=== PATIENT | female | born 1935 | race Caucasian/White ===

== ENCOUNTER 2017-05-04 11:46 | Observation (INO) | payer MEDICARE ==
[2017-05-04 13:04] LABS: #Basophils 0.1 thou/uL (0.0-0.2); #Eosinphils 0.5 thou/uL (0.0-0.7); #Lymphocytes 4.8 thou/uL (1.20-3.40); #Monocytes 0.9 thou/uL (0.11-0.59); #Neutrophils 4.9 thou/uL (1.40-6.50); %Basophils 1.3 % (0.0-1.0); %Eosinophils 4.5 % (0.0-10.0); %Lymphocytes 42.3 % (21.0-51.0); Hemoglobin 12.2 g/dL (12.0-16.0); Mean Corpuscular HGB CONC 33.3 g/dL (32.0-36.0); Mean Corpuscular Hemoglobin 30.6 pg (27.0-31.0); Mean Corpuscular Volume 92.2 fl (81.0-99.0); Platelet Count 376 thou/uL (130-400); RBC Distribution Width 13.4 % (11.5-14.5); Red Blood Cell (RBC) Count 3.97 mill/uL (4.20-5.40); White Blood Cell (WBC) Count 11.2 thou/uL (4.8-10.8)
--- NOTE | 2017-05-04 13:15 | RAD ---
RADIOGRAPH CHEST 1 VIEW: HISTORY: 81-year-old female with bradycardia. FINDINGS: There is hyperinflation of the lungs, consistent with COPD. There is cardiomegaly. There is no evid ence of air space density, pneumothorax, or pulmonary edema. The lateral costophrenic angles are sha rp. IMPRESSION: 1. No acute pulmonary findings. 2. Emphysema. 3. Cardiomegaly without congestive heart failure. 4. Evidence of coronary artery bypass graft surgery is evidence for coronary artery atherosclerotic disease. 5. Multiple old, healed, right posterolateral rib fracture deformities. nara [] POS: [facility]
[2017-05-04 13:22] LABS: ALT (SGPT) 18 U/L (8-55); AST (SGOT) 20 U/L (5-34); Albumin 3.9 g/dL (3.4-4.8); Alkaline Phosphatase 47 U/L (40-150); Anion Gap 14 mmol/L (10-20); BUN (Urea Nitrogen) 24 mg/dL (9.8-20.1); Bilirubin, Total 0.4 mg/dL (0.2-1.2); CK (CPK) 35 U/L (29-168); Calc. Creatinine Clearance 0 mL/min (70-130); Calcium 9.5 mg/dL (7.8-10.44); Carbon Dioxide 23 mmol/L (23-31); Chloride 94 mmol/L (98-107); Estimated GFR-MDRD 71; Globulin 2.7 g/dL (2.4-3.5); Glucose 95 mg/dL (83-110); Magnesium 1.9 mg/dL (1.6-2.6); Potassium 4.7 mmol/L (3.5-5.1); Protein, Total 6.6 g/dL (6.0-8.3); Sodium 126 mmol/L (136-145)
[2017-05-04 13:26] LABS: CKMB 0.8 ng/mL (0-6.6); Troponin I 0.014 ng/mL (< 0.028)
--- NOTE | 2017-05-04 16:04 | HP ---
PRIMARY CARE PHYSICIAN: SHELBY Macedo. REASON FOR ADMISSION: Hyponatremia, bradycardia. HISTORY OF PRESENT ILLNESS: An 81-year-old female with a history of coronary artery disease and requ ired CABG as well as history of post-CABG atrial fibrillation, on Multaq therapy. The patient is als o taking metoprolol 12.5 mg twice daily. The patient was told to come to the emergency room because primary care physician done some blood tests and they reported to family member that her potassium wa s high. Today, home health nurse checked her vitals and her pulse was running below 50 and her blood pressure was also slightly low and that is why her home health nurse called the patient's primary care physic geovani and based on blood test result and bradycardia, they advised her to go to the emergency room for evaluation. The patient's only complaint is generalized weakness, which is not new. The patient is planned for s urgery for left hip replacement in early May and that is why the patient is going to come for cla sses in our hospital and that is why primary care physician did routine blood test. Today, in our emergency room when blood test was repeated, her potassium is 4.7 but sodium is 126. T he patient denies taking any diuretics. The patient denies any constipation or diarrhea. She denies any fever, chills, nausea, vomiting, or flu-like illness. She denies any melena or hematochezia. S he denies any abdominal pain. She denies any chest pain, palpitation, orthopnea, PND or leg swelling . She denies any stroke-like symptoms. She denies any dizziness or syncopal episode. ALLERGIES: The patient is allergic to IODINE and IODINATED CONTRAST MEDIA. CURRENT HOME MEDICATIONS: Omeprazole 20 mg p.o. daily, Eliquis 5 mg p.o. daily, Multaq 400 mg twice daily, losartan 50 mg p.o. daily, metformin 500 mg p.o. b.i.d., methimazole 5 mg daily, metoprolol ta rtrate 12.5 mg twice daily, hydralazine 25 mg 3 times daily, pravastatin 40 mg p.o. at bedtime, Zolof t 50 mg p.o. daily, tramadol 50 mg q.6 hourly p.r.n., aspirin 81 mg p.o. daily. REVIEW OF SYSTEMS: The following complete review of systems was negative, unless otherwise mentioned in the HPI or below: CONSTITUTIONAL: Weight loss or gain, ability to conduct usual activities. SKIN: Rash, itching. EYES: Double vision, pain. ENT/MOUTH: Nose bleeding, neck stiffness, pain, tenderness. CARDIOVASCULAR: Palpitations, dyspnea on exertion, orthopnea. RESPIRATORY: Shortness of breath, wheezing, cough, hemoptysis, fever or night sweats. GASTROINTESTINAL: Poor appetite, abdominal pain, heartburn, nausea, vomiting, constipation, or diarrhea. GENITOURINARY: Urgency, frequency, dysuria, nocturia. MUSCULOSKELETAL: Pain, swelling. NEUROLOGIC/PSYCHIATRIC: Anxiety, depression. ALLERGY/IMMUNOLOGIC: Skin rash, bleeding tendency. Please see my HPI for pertinent positives and negatives. All other review of systems reviewed and ne gative except as mentioned in the HPI. PAST MEDICAL HISTORY: Hypertension; dyslipidemia; diabetes type 2; asthma; three-vessel coronary art sriram disease, required CABG; hyperthyroidism; gastroesophageal reflux disease. PAST PSYCHIATRIC HISTORY: Anxiety and depression. PAST SURGICAL HISTORY: Tonsillectomy, left hip replacement, hysterectomy, cataract surgery, bladder suspension, sinus surgery, CABG x3, cardiac catheterization. SOCIAL HISTORY: The patient lives at home with family. No history of tobacco, alcohol or illicit dr ug abuse. FAMILY HISTORY: Mother by age of 92 from old age. Father by age of 87 from old age. No s antonietta family history of coronary artery disease, stroke or cancer. EMERGENCY ROOM COURSE: The patient is receiving IV fluid. PHYSICAL EXAMINATION: VITAL SIGNS: On arrival, blood pressure 175/77, pulse variable from 48 to 51, respiratory rate 18, t emperature 98.0, saturation 97% on room air, weight 63 kilograms. GENERAL: The patient is currently alert, awake, no obvious acute distress. HEENT: Head: Normocephalic, atraumatic. Eyes: Pupils round, reactive to light. Extraocular muscl es intact. ENT: Oropharynx within normal limits. Moist mucous membranes. No oral lesions. No pha ryngeal erythema, no exudates. NECK: Supple. No JVD. No thyromegaly. No carotid bruit. No jugular venous distention. BACK: Unremarkable, no CVA tenderness. EXTREMITIES: Upper extremity: Passive movement of all joints are normal. Lower extremities: No ed raeann. Good peripheral pulsation. SKIN: No skin rash. HEMATOLOGICAL: No lymphadenopathy. NEUROLOGIC: The patient is alert and oriented x3. Cranial nerves II-XII intact. Motor and sensatio n within normal limits, plantar bilateral flexor. Reflexes symmetrical. SIGNIFICANT LABORATORY: EKG based on my review, sinus bradycardia, nonspecific ST-T changes. Chest x-ray based on my review, no acute cardiopulmonary process, CABG changes, emphysema, multiple old hea led right rib fracture. CBC: WBC 11.2, hemoglobin 12.2, platelets 376. BMP: Sodium 126, potassium 4.7, chloride 94, carbon dioxide 23, anion gap 14, BUN 24, creatinine 0.78, glucose 95, calcium 9.5, magnesium 1.9. LFT: AST 20, ALT 18, alkaline phosphatase 47, albumin 3.9, CK 35, CK-MB 0.8, troponin I 0.014. ASSESSMENT AND PLAN: 1. Bradycardia. The patient is asymptomatic only complaining of generalized weakness. I am doubtfu l whether generalized weakness is related with bradycardia only. This patient is taking metoprolol a s well as Multaq that contributing to her bradycardia. At this point, I will reduce dose of metoprol ol to 12.5 mg only once a day. We will hold metoprolol therapy tonight for low pulse rate below 60. We will monitor on telemetry floor. The patient is currently in sinus rhythm and she has sinus raven ycardia. 2. Hyponatremia. The patient has chronic hyponatremia, but at this time, sodium is 126. Looking at her old records, the patient also has sodium variable from 130 to 125. At this point, suspecting fr om SIADH, but I will try NS at 70 mL per hour and will repeat BMP tomorrow. I will also do hyponatre lilo workup with urine sodium, urine osmolality, urine creatinine and plasma osmolarity, TSH, random c ortisol. The patient will also need high protein diet. 3. Generalized weakness, which is chronic. The patient will need PT evaluation while in hospital. 4. Coronary artery disease with a history of coronary artery bypass graft. At this point, we will c ontinue patient aspirin 81 mg p.o. daily, pravastatin 40 mg p.o. at bedtime, losartan 50 mg p.o. jose y and hydralazine 25 mg p.o. t.i.d. 5. Paroxysmal atrial fibrillation. This patient had atrial fibrillation after coronary artery bypas s graft. The patient is currently on Eliquis therapy as well as metoprolol and Multaq therapy. Curr ently, the patient is in sinus rhythm. 6. Gastroesophageal reflux disease. We will continue Protonix 40 mg p.o. daily. 7. Diabetes type 2. We will continue metformin 500 mg twice a day. 8. Hyperkalemia, probably related with losartan, currently potassium is back to normal. We will rec onfirm again one more time with a repeat checking BMP. 9. Hyperthyroidism. We will continue methimazole as per home dosage. 10. Dyslipidemia. We will check lipid profile tomorrow and continue pravastatin 40 mg p.o. at [facility]. 11. Anxiety and depression. We will continue Zoloft 50 mg p.o. daily. 12. Deep venous thrombosis prophylaxis not needed because the patient is already on Eliquis therapy. 13. Gastrointestinal prophylaxis, Protonix 40 mg p.o. daily. CODE STATUS: The patient is full code. The patient's son is surrogate decision maker. Disposition and plan based on clinical course likely within 24 hours. Plan of care discussed with the patient an d family member at bedside in the emergency room. During this admission, we will also rule out acute coronary syndrome and will do serial cardiac enzymes x3 to rule out acute coronary syndrome.
[2017-05-04] MEDS ORDERED: Acetaminophen 500 MG TAB ONE (18:11)
[2017-05-04] MEDS ORDERED: hydrALAZINE 25 MG TAB ONE (18:11)
[2017-05-04] MEDS ORDERED: Sodium Chloride 0.9% 1,000 ML IV SCH (19:00)
[2017-05-04] MEDS ORDERED: Artificial Tears 18 DROP/0.9 ML EA EYE PRN (19:52)
[2017-05-04] MEDS ORDERED: Eucerin (Mineral Oil/Petrolatum,White) 30 gm Jar TOP PRN (19:52)
[2017-05-04] MEDS ORDERED: Mag-Al 1200 mg/1200 mg/30 ML UDCUP PO PRN (19:52)
[2017-05-04] MEDS ORDERED: Dextrose 5% in Water 1,000 ML IV PRN (19:52)
[2017-05-04] MEDS ORDERED: Senokot 8.6 MG TAB PO PRN (19:52)
[2017-05-04] MEDS ORDERED: Dextrose 50% Abboject 50 ML SYRINGE SLOW IVP PRN (19:52)
[2017-05-04] MEDS ORDERED: HumaLOG 300 UNITS/3 ML VIAL SC PRN ×2 (19:52)
[2017-05-04] MEDS ORDERED: Loperamide HCl 2 MG CAP PO PRN (19:52)
[2017-05-04] MEDS ORDERED: Loratadine 10 MG TAB PO PRN (19:52)
[2017-05-04] MEDS ORDERED: hydrALAZINE 20 MG/ML VIAL SLOW IVP PRN (19:52)
[2017-05-04] MEDS ORDERED: Milk Of Magnesia 30 ML UDCUP PO PRN (19:52)
[2017-05-04] MEDS ORDERED: Nitroglycerin 0.4 MG TAB (25 Tab Bottle) SL PRN (19:52)
[2017-05-04] MEDS ORDERED: Diabetic Tussin 200 MG/10 ML UDCUP PO PRN (19:52)
[2017-05-04] MEDS ORDERED: Ondansetron HCl/PF 4 MG/2 ML Vial IVP PRN (19:52)
[2017-05-04] MEDS ORDERED: Zolpidem Tartrate 5 MG TAB PO PRN (19:52)
[2017-05-04] MEDS ORDERED: Acetaminophen 325 MG TAB PO PRN (19:52)
[2017-05-04] MEDS ORDERED: Ondansetron ODT 4 MG TAB PO PRN (19:52)
[2017-05-04] MEDS ORDERED: Sodium Chloride 0.65% Nasal 44 ML BOT EA NARE PRN (19:52)
[2017-05-04] MEDS ORDERED: HYDROcodone/Acetaminophen 5/325 mg Tablet PO PRN (19:52)
[2017-05-04] MEDS: Sodium Chloride 0.9% 1,000 ML IV SCH (20:00)
[2017-05-04] MEDS ORDERED: Dronedarone HCl 400 MG TAB PO SCH (20:15)
[2017-05-04 20:42] LABS: Anion Gap 12 mmol/L (10-20); BUN (Urea Nitrogen) 20 mg/dL (9.8-20.1); Calc. Creatinine Clearance 0 mL/min (70-130); Calcium 9.2 mg/dL (7.8-10.44); Carbon Dioxide 24 mmol/L (23-31); Chloride 95 mmol/L (98-107); Estimated GFR-MDRD 69; Glucose 97 mg/dL (83-110); Potassium 4.5 mmol/L (3.5-5.1); Sodium 126 mmol/L (136-145)
[2017-05-04] MEDS: Apixaban 5 MG TAB PO SCH (20:49)
[2017-05-04] MEDS: hydrALAZINE 25 MG TAB PO SCH (20:49)
[2017-05-04] MEDS ORDERED: Atorvastatin Calcium 10 MG TAB PO SCH (21:00)
[2017-05-04 21:02] LABS: Thyroid Stimulating Hormone 1.5172 uIU/mL (0.35-4.94)
[2017-05-04] MEDS: metFORMIN 500 MG TAB PO SCH (21:10)
[2017-05-04 21:56] LABS: CKMB 0.8 ng/mL (0-6.6); Troponin I 0.013 ng/mL (< 0.028)
[2017-05-05 00:03] LABS: Osmolality, Urine 302 mOsm/kg (300-900)
[2017-05-05 00:20] LABS: Sodium, Urine 56 mmol/L (Not Available)
[2017-05-05 00:52] LABS: CKMB 0.9 ng/mL (0-6.6); Troponin I 0.017 ng/mL (< 0.028)
[2017-05-05] MEDS: Sodium Chloride 0.9% 1,000 ML IV SCH (03:15)
[2017-05-05 05:17] VITALS: BMI 27.3
[2017-05-05 05:19] LABS: #Basophils 0.1 thou/uL (0.0-0.2); #Eosinphils 0.6 thou/uL (0.0-0.7); #Lymphocytes 3.6 thou/uL (1.20-3.40); #Monocytes 0.9 thou/uL (0.11-0.59); #Neutrophils 3.6 thou/uL (1.40-6.50); %Basophils 0.9 % (0.0-1.0); %Eosinophils 7.2 % (0.0-10.0); %Lymphocytes 40.8 % (21.0-51.0); %Monocytes 10.5 % (0.0-10.0); %Neutrophils 40.5 % (42.0-75.0); Hemoglobin 11.6 g/dL (12.0-16.0); Mean Corpuscular HGB CONC 33.5 g/dL (32.0-36.0); Mean Corpuscular Hemoglobin 31.1 pg (27.0-31.0); Mean Corpuscular Volume 92.8 fl (81.0-99.0); Mean Platelet Volume 6.6 fL (7.4-10.4); Platelet Count 342 thou/uL (130-400); RBC Distribution Width 13.7 % (11.5-14.5); Red Blood Cell (RBC) Count 3.73 mill/uL (4.20-5.40); White Blood Cell (WBC) Count 8.8 thou/uL (4.8-10.8)
[2017-05-05 05:40] LABS: Anion Gap 11 mmol/L (10-20); BUN (Urea Nitrogen) 19 mg/dL (9.8-20.1); Calc. Creatinine Clearance 57 mL/min (70-130); Calcium 9.3 mg/dL (7.8-10.44); Carbon Dioxide 24 mmol/L (23-31); Chloride 97 mmol/L (98-107); Estimated GFR-MDRD 70; Glucose 92 mg/dL (83-110); Potassium 4.5 mmol/L (3.5-5.1); Sodium 127 mmol/L (136-145)
[2017-05-05] MEDS ORDERED: traMADol HCl 50 MG TAB PO PRN (07:01)
[2017-05-05] MEDS ORDERED: Dronedarone HCl 400 MG TAB PO SCH (08:00)
[2017-05-05 08:46] VITALS: TEMP 97.6
[2017-05-05] MEDS: metFORMIN 500 MG TAB PO SCH (08:46)
[2017-05-05] MEDS: hydrALAZINE 25 MG TAB PO SCH (08:46)
[2017-05-05] MEDS: Apixaban 5 MG TAB PO SCH (08:47)
[2017-05-05] MEDS ORDERED: Metoprolol Tartrate 25 MG TAB PO SCH (09:00)
[2017-05-05] MEDS ORDERED: Atorvastatin Calcium 10 MG TAB PO SCH (09:00)
[2017-05-05] MEDS ORDERED: Methimazole 5 MG TAB PO SCH (09:00)
--- NOTE | 2017-05-05 10:04 | DIS ---
PRIMARY CARE PHYSICIAN: Dr. Anny Shankar DATE OF ADMISSION: 05/04/2017 DATE OF DISCHARGE: 05/05/2017 DISCHARGE DISPOSITION: Home. PRIMARY DISCHARGE DIAGNOSES: 1. Hyperkalemia, resolved. 2. 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 3. Generalized weakness. 4. Bradycardia, likely due to metoprolol. SECONDARY DISCHARGE DIAGNOSES: Coronary artery disease, chronic anticoagulation with Eliquis, paroxy smal atrial fibrillation, hypertension, dyslipidemia. Gastroesophageal reflux disease. Hyperthyroidi sm, physical deconditioning. PRIMARY PROCEDURE/OPERATION: None. RADIOLOGICAL INVESTIGATION: Chest x-ray was showing no acute cardiopulmonary process, but patient guajardo d emphysema, cardiomegaly and CABG changes and old rib fracture deformities. SIGNIFICANT LABS: WBC 8.8, hemoglobin 11.6, platelets 342. Sodium 127, potassium 4.5, BUN 19, creat inine 0.79, calcium 9.3. Cardiac enzymes negative x3. TSH 1.51. Cortisol 7.90, serum osmolality 27 5, magnesium 1.9. Urine osmolality 302. Urine creatinine 31.04. Urine sodium 56. DISCHARGE MEDICATIONS: Sodium chloride 1 gram p.o. daily for 7 days, Eliquis 5 mg p.o. b.i.d., aspir in 81 mg p.o. daily, vitamin D3 5000 units p.o. daily, Multaq 400 mg p.o. b.i.d., hydralazine 25 mg p .o. q.8h., [place] 5 one or two tablets q.4 hourly p.r.n., losartan 100 mg p.o. daily, metformin 500 mg p.o. b.i.d., methimazole 5 mg p.o. daily, metoprolol tartrate 12.5 mg p.o. daily, multivitamin 1 tab let p.o. daily, omeprazole 20 mg p.o. daily, pravastatin 40 mg p.o. at bedtime, Zoloft 50 mg p.o. nicole ly, tramadol 50 mg q.6h. p.r.n. CONTRAINDICATIONS: None. CODE STATUS: FULL CODE. INPATIENT CONSULTANTS: None. ALLERGIES: IODINATED CONTRAST. DISCHARGE PLAN: Post hospital, the patient is advised to follow up with primary care physician in 1 week. Primary care physician is requested to repeat BMP one more time upon followup visit. HOSPITAL COURSE: An 81-year-old female who was sent by primary care physician for abnormal lab resul ts. The patient had a BMP on an outpatient basis and her potassium was 6.3 and her home health nurse checked her pulse and it was low and her blood pressure was also high and that is why [facility] contacted her primary care physician and considering all together they sent her to the emergency room for evaluation. The patient did not have any new complaints. She was having chronic generalize d weakness. She did not have any other review of systems positive. When we repeated blood tests in our hospital her potassium was already normal. Her sodium was slightly low and that is why we kept h er in the hospital. We treated her with IV fluid, but that did not improve significantly her sodium. 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 We advised this patient to restrict free water and takes salt tablet on a daily basis for 7 days and then repeat BMP in 1 week. Regarding her hypertension, we advised her to take hydralazine 3 times daily as well as we also advis ed to reduce metoprolol to 12.5 mg p.o. daily for bradycardia. The patient is overall medically stable. The patient is seen and examined at bedside today. Review of systems reviewed with her and negative. VITAL SIGNS: Currently, temperature 97.6, pulse 61, respiratory rate 18, saturation 97%, blood press ure 168/77, weight 144 pounds. GENERAL: The patient is currently alert, awake, no acute distress. HEAD: Normocephalic, atraumatic. EYES: Pupils round, reactive to light. Extraocular muscles intact. ENT: Oropharynx within normal limits. Moist mucous membranes. No oral lesions. No pharyngeal eryt trudi, no exudate. NECK: Supple, no JVD, no thyromegaly, no carotid bruit. No jugular venous distention. LUNGS: Clear to auscultation without any rhonchi or rales. CARDIAC: S1, S2 regular without any murmur. ABDOMEN: Soft and benign. EXTREMITIES: No edema. NEUROLOGIC: Nonfocal examination. Overall, the patient is medically stable for discharge today. All review of systems reviewed with he r and negative.
[2017-05-05 11:16] VITALS: BP 150/67
== END 2017-05-05 11:09 | disposition home or self-care (01) ==
LOC: ERS 11:46 → 2NO 15:05
PROVIDERS: ADMIT Internal Medicine; ATTEND Internal Medicine
DX: E87.5 Hyperkalemia (principal); E87.1 Hypo-osmolality and hyponatremia; R53.1 Weakness; R00.1 Bradycardia, unspecified; I25.10 Atherosclerotic heart disease of native coronary artery without angina pectoris; I48.0 Paroxysmal atrial fibrillation; I10 Essential (primary) hypertension; E78.5 Hyperlipidemia, unspecified; K21.9 Gastro-esophageal reflux disease without esophagitis; E05.90 Thyrotoxicosis, unspecified without thyrotoxic crisis or storm; E11.9 Type 2 diabetes mellitus without complications; J45.909 Unspecified asthma, uncomplicated; F41.8 Other specified anxiety disorders; Z79.01 Long term (current) use of anticoagulants; Z79.82 Long term (current) use of aspirin; Z79.84 Long term (current) use of oral hypoglycemic drugs; Z79.899 Other long term (current) drug therapy; Z88.7 Allergy status to serum and vaccine; Z91.041 Radiographic dye allergy status; Z98.49 Cataract extraction status, unspecified eye; Z95.1 Presence of aortocoronary bypass graft; Z96.642 Presence of left artificial hip joint; Z90.710 Acquired absence of both cervix and uterus; Z90.89 Acquired absence of other organs; Z98.890 Other specified postprocedural states
CPT/HCPCS: 71010; 80048 ×2; 82533; 82550; 82553 ×3; 82570; 82962 ×2; 83735; 83930; 83935; 84300; 84484 ×3; 85025; 93005; 96360; 96361 ×2; 97139; 99285; G0378; G8978; G8979; 36415; 36416; 80053; 84443

== ENCOUNTER 2017-05-09 12:44 | Outpatient (CLI) | payer MEDICARE ==
--- NOTE | 2017-05-09 14:40 | RAD ---
CHEST TWO VIEWS: History: Chest pain. Comparison: 05-04-17 FINDINGS: Cardiac silhouette and pulmonary vasculature are unremarkable. Mediastinum is midline with post-opera tive changes and aortic calcification. Linear scarring remains at the left lung base. There is no lob ar consolidation or evidence of pneumothorax. Old right rib fractures appear stable. IMPRESSION: Chronic type findings appear stable. POS: [facility]
[2017-05-09 14:48] LABS: Bilirubin Negative (Negative); Blood, Urine Negative (Negative); Glucose, Urine (Dipstick) Negative (Negative); Hematocrit 36.7 % (36.0-47.0); Ketone, Urine Negative (Negative); Mean Platelet Volume 7.1 fL (7.4-10.4); Nitrite Negative (Negative); Protein, Urine (Dipstick) 30 mg/dL (Neg-Trace); Red Blood Cell (RBC) Count 3.95 mill/uL (4.20-5.40); Urobilinogen 0.2 mg/dL (0.2-1.0); White Blood Cell (WBC) Count 11.3 thou/uL (4.8-10.8)
[2017-05-09 14:49] LABS: Bacteria/HPF None Seen HPF (None Seen); Hyaline Casts/LPF 0-3 HYALINE CAST LPF (0-3 Hyaline); Squamous Epithelial 0-3 HPF (0-3)
[2017-05-09 14:52] LABS: PTT 39.7 SEC (22.9-36.1); Prothrombin Time 15.7 SEC (12.0-14.7)
[2017-05-09 15:06] LABS: Anion Gap 14 mmol/L (10-20); BUN (Urea Nitrogen) 23 mg/dL (9.8-20.1); Calc. Creatinine Clearance 0 mL/min (70-130); Calcium 10.4 mg/dL (7.8-10.44); Carbon Dioxide 26 mmol/L (23-31); Chloride 96 mmol/L (98-107); Estimated GFR-MDRD 68
--- NOTE | 2017-05-09 18:04 | EKG ---
Test Reason : Blood Pressure : / mmHG Vent. Rate : 049 BPM Atrial Rate : 049 BPM P-R Int : 186 ms QRS Dur : 092 ms QT Int : 466 ms P-R-T Axes : 055 049 077 degrees QTc Int : 420 ms Marked sinus bradycardia Low voltage QRS cannot R/O anterior infarct age unknown (parwp) Abnormal ECG When compared with ECG of 04-MAY-2017 11:51, (Unconfirmed) T wave inversion no longer evident in Anterolateral leads Confirmed by DR. Sera POWELL ([id number]) on 05/09/2017 6:03:47 PM Referred By: SILVESTRE Confirmed By:DR. Sera POWELL
== END 2017-05-09 12:45 | disposition home or self-care (01) ==
LOC: LABBT 12:44
PROVIDERS: ATTEND Orthopaedic Surgery
DX: Z01.818 Encounter for other preprocedural examination (principal); M16.11 Unilateral primary osteoarthritis, right hip
CPT/HCPCS: 71020; 80048; 81001; 85027; 85610; 85730; 86850; 86900; 86901; 87081; 93005; 93010

== ENCOUNTER 2017-05-09 13:00 | Inpatient (IN) | payer MEDICARE ==
[2017-05-09 13:01] VITALS: BMI 26.2
[2017-05-16] MEDS ORDERED: CEFAZOLIN/Water 2 GM/20 ML SYRINGE ONE (06:43)
[2017-05-16] MEDS ORDERED: Tranexamic Acid 1,000 MG/100 ML BAG ONE ×2 (06:44→10:07)
[2017-05-16] MEDS ORDERED: Fentanyl 100 MCG/2 ML VIAL ONE (07:22)
[2017-05-16] MEDS ORDERED: HYDROcodone/Acetaminophen 5/325 mg Tablet PO PRN (08:00)
[2017-05-16] MEDS ORDERED: Naloxone HCl 0.4 mg/ml Vial IV PRN (08:00)
[2017-05-16] MEDS ORDERED: Ondansetron HCl/PF 4 MG/2 ML Vial IVP PRN ×2 (08:00→08:52)
[2017-05-16] MEDS ORDERED: Zolpidem Tartrate 5 MG TAB PO PRN ×2 (08:00→08:52)
[2017-05-16] MEDS ORDERED: diphenhydrAMINE 50 MG/ML VIAL IVP PRN (08:00)
[2017-05-16] MEDS ORDERED: traMADol HCl 50 MG TAB PO PRN ×4 (08:00→08:52)
[2017-05-16] MEDS ORDERED: Fentanyl/Bupivacaine 250 ML in Premix Bag 1 BAG EPIDURAL SCH ×2 (08:00→08:30)
[2017-05-16] MEDS ORDERED: diphenhydrAMINE 50 MG/ML VIAL IM PRN (08:00)
[2017-05-16] MEDS ORDERED: Promethazine HCl 25 MG/ML VIAL IM PRN ×2 (08:00→08:52)
[2017-05-16] MEDS ORDERED: Promethazine HCl 25 MG SUPP PR PRN (08:00)
[2017-05-16] MEDS ORDERED: Eucerin (Mineral Oil/Petrolatum,White) 30 gm Jar TOP PRN (08:00)
[2017-05-16] MEDS ORDERED: Naloxone HCl 0.4 mg/ml Vial IVP PRN (08:00)
[2017-05-16] MEDS ORDERED: diphenhydrAMINE 25 MG CAP PO PRN ×2 (08:00→08:52)
[2017-05-16] MEDS ORDERED: Acetaminophen 325 MG TAB PO PRN (08:52)
[2017-05-16] MEDS ORDERED: Fentanyl 100 MCG/2 ML VIAL SLOW IVP PRN (08:52)
[2017-05-16] MEDS ORDERED: HYDROcodone/Acetaminophen 10/325 mg Tablet PO PRN ×2 (08:52)
[2017-05-16] MEDS ORDERED: Multivitamin W/ Minerals 1 TAB PO SCH (09:00)
[2017-05-16] MEDS ORDERED: Tranexamic Acid 1,000 MG in Sodium Chloride 0.9% 100 ML IVPB SCH (09:00)
[2017-05-16] MEDS ORDERED: Bupivacaine/Epinephrine 0.25% 30 ML VIAL ONE (09:04)
--- NOTE | 2017-05-16 10:18 | OP ---
DATE OF PROCEDURE: 05/16/2017 PREOPERATIVE DIAGNOSIS: End-stage bicompartmental osteoarthritis, right hip. POSTOPERATIVE DIAGNOSIS: End-stage bicompartmental osteoarthritis, right hip. PROCEDURE: Press-Fit right total hip arthroplasty. SURGEON: Allen Temple M.D. CUSTOMER SUPPLY CHAIN ANALYST: Giovani Hernandes PA-C. ANESTHESIA: General via endotracheal tube augmented with indwelling epidural. COMPONENTS USED: [employer] Trident PSL cluster acetabular shell pressfit 52 mm, 10 degree polyethylene fixed bearing insert, a size 2.5 Accolade press-fit hip stem with a neutral offset, V40 metallic femoral head. ESTIMATED BLOOD LOSS: Less than 100 mL. DRAINS: None. SPECIMENS: None. COMPLICATIONS: None. COUNTS: Correct. FINDINGS: End-stage severe general bicompartmental disease, bone on bone arthrosis, periarticular os teophyte formation, large serous effusion, hypertrophic synovium. INDICATIONS FOR SURGERY: Rangel is an 81-year-old white female who has had progressive right groi n and thigh pain amplified with standing and walking for the last 5-7 years. She has failed conserva tive management and elected to proceed with total hip arthroplasty for definitive treatment of her pa in. PROCEDURE IN DETAIL: After informed consent was obtained in the preoperative holding area, the patie nt was taken to the operative suite where general anesthesia was induced. The patient was then posit ioned in the lateral decubitus position. The hip was then prepped and draped in usual sterile fashio n. The patient received preoperative antibiotics. Prior to incision, time-out was called and all me mbers of the surgical team agreed upon site, surgeon, and patient. After this, a longitudinal incisi on was made directly over the trochanter, noted by palpation extending 2 fingerbreadths above and bel ow the trochanter. The deeper subcutaneous layer was undermined with Bovie electrocautery. The ilio tibial band was encountered and incised sharply and the plane below this was developed bluntly. A paulo retractor was placed to hold this opened. The lateral aspect of the trochanter and the abduct or muscles were encountered and then reflected anteriorly off the trochanter using Bovie electrocaute ry. Once this was completed, the anterior capsule was then encountered and identified and copious ca psulotomy was carried out, exposing the femoral neck and head. Dislocation maneuver was then performe d and an in situ provisional neck cut was then made using the oscillating saw. Attention was then tu rned to acetabular preparation and sequential reaming was carried out up to the appropriate diameter and a trial was then malleted into place with good firm resistance and no pullout. The permanent stevie tabular shell was then malleted squarely into place, as was the appropriate liner. Once completed, t he wound was copiously irrigated and attention was then turned to femoral preparation. Flexion and ex ternal rotation was performed of the exposed thigh and femoral elevators were then placed at the prox imal aspect of the wound. Canal finder was used to establish the length of the canal and sequential reaming was carried out, followed by broaching. Once the appropriate stability was established with the trial broaches with both flexion, extension and rotational stability, we did trial with neutral a nd 2 mm offset incremental necks. Once the appropriate size was decided upon, with good stability no marifer with flexion, extension, internal and external rotation and shuck being negative, we removed the femoral trial broach and malletted into place the permanent prosthesis with good firm fit, which was also stable to rotation. Again, the hip felt very stable to flexion, extension, internal and externa l rotation. Leg lengths appeared near anatomic clinically and we were quite happy with prosthesis pl acement. Copious irrigation was then carried out through the entirety of the wound. Primary closure of the abductors was accomplished with interrupted #2 Vicryl [id number] stitches and the IT ban d was then closed with interrupted #2 Vicryl, oversewn with a #2 running barbed Quill stitch. Subcut aneous fascia was closed with running barbed Quill stitch and a subcuticular Monocryl barbed Quill st itch was used for skin closure and augmented with skin cement. A sterile dressing was applied. The p rocedure was terminated without any complication. All counts were correct. The patient was awakened in the operative suite and taken to the recovery room in stable condition.
--- NOTE | 2017-05-16 11:19 | RAD ---
TWO VIEW RIGHT HIP SERIES: Indication: Post op right hip evaluation. FINDINGS: There is a right hip prosthesis appropriately aligned without over complication. Expected post proced ural findings and other regional soft tissues noted. IMPRESSION: Post-operative right hip without hardware complication. POS: [facility]
[2017-05-16] MEDS ORDERED: Artificial Tears 18 DROP/0.9 ML EA EYE PRN (12:04)
[2017-05-16] MEDS ORDERED: Diabetic Tussin 200 MG/10 ML UDCUP PO PRN (12:04)
[2017-05-16] MEDS ORDERED: Milk Of Magnesia 30 ML UDCUP PO PRN (12:04)
[2017-05-16] MEDS ORDERED: hydrALAZINE 20 MG/ML VIAL SLOW IVP PRN (12:04)
[2017-05-16] MEDS ORDERED: Loperamide HCl 2 MG CAP PO PRN (12:04)
[2017-05-16] MEDS ORDERED: Mag-Al 1200 mg/1200 mg/30 ML UDCUP PO PRN (12:04)
[2017-05-16] MEDS ORDERED: Bisacodyl 10 MG SUPP PR PRN (12:04)
[2017-05-16] MEDS ORDERED: Chloraseptic Spray 180 ml Bottle PO PRN (12:04)
[2017-05-16] MEDS ORDERED: Dextrose 5% in Water 1,000 ML IV PRN (12:28)
[2017-05-16] MEDS ORDERED: HumaLOG 300 UNITS/3 ML VIAL SC PRN ×2 (12:28)
[2017-05-16] MEDS ORDERED: Dextrose 50% Abboject 50 ML SYRINGE SLOW IVP PRN (12:28)
--- NOTE | 2017-05-16 13:24 | CON ---
DATE OF CONSULTATION: 05/16/2017 PRIMARY CARE PHYSICIAN: SHELBY Macedo PRIMARY ATTENDING: Allen Temple M.D. REASON FOR ADMISSION: Elective admission for right total hip replacement. REASON FOR CONSULTATION: Medical comanagement. HISTORY OF PRESENT ILLNESS: An 81-year-old female with a past medical history of hypertension, dysli pidemia, diabetes type 2, coronary artery disease requiring CABG who was recently admitted in our [facility] on 05/04/2017 for abnormal lab test result. Patient had preoperative class and she had routine blood test, which showed hyperkalemia and hyponatr emia as well as patient's home health nurse noticed the low blood pressure and that is why primary ca re physician advised to go to hospital for admission. During that admission, the patient had hyponat remia. The patient was also having bradycardia. She was taking Multaq and metoprolol prior to admis ariana and that was contributing to her low pulse rate. During that admission, we reduced metoprolol t artrate to 12.5 mg daily. This patient had paroxysmal atrial fibrillation after CABG and that is why she was on Multaq therapy. On discharge, the patient was given sodium chloride tablets. Patient wa s given fluid restriction. After discharge, the patient had routine blood test of sodium and her sod ium was 127, 130 and 128. Today, the patient was electively admitted for right total hip replacement. She had left hip replace ment several years ago. Post-procedure, the patient was transferred to the [facility]. She guajardo s epidural in. Her blood pressure is currently on lower side, but patient is asymptomatic. She does not have any pain. She denies any chest pain, palpitation, dizziness. She denies any weakness. Sh e denies any UTI symptoms. She denies any constipation, diarrhea, melena or hematochezia. Family is present at bedside. The patient is completely asymptomatic. PAST MEDICAL HISTORY: Hypertension, dyslipidemia, diabetes type 2, diet controlled, hyperthyroidism, asthma, 3-vessel CAD, required CABG, and gastroesophageal reflux disease. PAST PSYCHIATRIC HISTORY: Anxiety and depression. PAST SURGICAL HISTORY: Left hip replacement, status post right hip replacement, tonsillectomy, hyste rectomy, cataract surgery, bladder suspension, sinus surgery, CABG x3, cardiac catheterization. ALLERGIES: The patient is allergic to IODINE and IODINATED CONTRAST MEDIA. REVIEW OF SYSTEMS: The following complete review of systems was negative, unless otherwise mentioned in the HPI or below: Constitutional: Weight loss or gain, ability to conduct usual activities. Sk in: Rash, itching. Eyes: Double vision, pain. ENT/Mouth: Nose bleeding, neck stiffness, pain, te nderness. Cardiovascular: Palpitations, dyspnea on exertion, orthopnea. Respiratory: Shortness of breath, wheezing, cough, hemoptysis, fever or night sweats. Gastrointestinal: Poor appetite, abdom inal pain, heartburn, nausea, vomiting, constipation, or diarrhea. Genitourinary: Urgency, frequenc y, dysuria, nocturia. Musculoskeletal: Pain, swelling. Neurologic/Psychiatric: Anxiety, depressio n. Allergy/Immunologic: Skin rash, bleeding tendency. Please see my HPI for pertinent positives and negatives. All other review of systems was reviewed an d negative except as mentioned in the HPI. CURRENT HOME MEDICATIONS: Tylenol 1 gram q.8 hourly p.r.n., Tylenol PM p.r.n. 100 mg p.o. at bedtime , Eliquis 5 mg p.o. b.i.d., which was on hold for surgery, aspirin 81 mg p.o. daily, vitamin D3 5000 units p.o. daily, Multaq 400 mg p.o. b.i.d., hydralazine 25 mg p.o. q.8 hourly, Losartan 100 mg p.o. daily, metformin 500 mg p.o. b.i.d., methimazole 5 mg p.o. daily, metoprolol 12.5 mg p.o. daily, mult ivitamin 1 tablet p.o. daily, omeprazole 20 mg p.o. daily, pravastatin 40 mg p.o. at bedtime, Zoloft 100 mg p.o. daily, sodium chloride 1 gram p.o. daily, tramadol 50 mg q.6 hourly p.r.n. SOCIAL HISTORY: The patient lives at home with family. No history of tobacco, alcohol or illicit dr ug abuse. FAMILY HISTORY: Mother by age of 92 from old age. Father by age of 87 from old age, no st augie family history of premature coronary artery disease, stroke or cancer. PHYSICAL EXAMINATION: VITAL SIGNS: Currently, blood pressure 96/80, pulse 59, respiratory rate 18, weight 139 pounds, satu ration 97% on room air. GENERAL: Patient is currently alert, awake, no acute distress. HEENT: Normocephalic, atraumatic. Eyes: Pupils round, reactive to light. Extraocular muscles inta ct. ENT: Oropharynx within normal limits. Moist mucous membranes. No oral lesions. No pharyngeal eryt trudi, no exudate. NECK: Supple, no JVD, no thyromegaly, no carotid bruit, no jugular venous distention. LUNGS: Clear to auscultation without any rhonchi or rales. CARDIAC: S1, S2 regular. No murmur, no gallop, no rub. CHEST: Chest wall CABG scar noted. BACK: Unremarkable, no CVA tenderness. EXTREMITIES: Upper extremity, passive movement of all joints are normal. Lower extremities: No blayne ma. Good peripheral pulsation. SKIN: No skin rash. HEMATOLOGICAL: No lymphadenopathy. PSYCHIATRIC: Normal affect. NEUROLOGIC: Patient is alert and oriented x3. Cranial nerves II-XII intact. Motor and sensation wi thin normal limits, plantar bilateral flexor. Reflexes symmetrical. SIGNIFICANT LABORATORY DATA: Most recent lab test, CBC: WBC 8.6, hemoglobin 11.4, platelets 366. I NR 1.2. Sodium 128, potassium 5.1, chloride 96, BUN 25, creatinine 0.85, calcium 9.8, AST 20, ALT 15 , alkaline phosphatase 45, albumin 4.1. TSH 1.51. Free T4, free T3 normal, cortisol 7.90. Urinalys is suggestive of UTI. ASSESSMENT AND PLAN: 1. Status post right total hip replacement. The patient is status post-surgery, aspirin will be giv en for deep venous thrombosis prophylaxis. Eliquis will be started when orthopedics okay. We will m onitor CBC. Currently patient has epidural and currently pain is well controlled. 2. Hyperthyroidism. The patient's recent thyroid function test was normal. We will continue methim azole 5 mg p.o. daily and the patient will have repeat thyroid function test after followup. 3. Diabetes type 2. We will continue metformin 500 mg p.o. b.i.d., diabetic diet will be given, ins ulin as per sliding scale protocol. 4. 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 W e will continue salt tablet 1 g daily. Fluid restriction 1500 mL advised. 5. Coronary artery disease, status post coronary artery bypass graft. Continue aspirin, pravastatin 40 mg p.o. at bedtime. 6. Paroxysmal atrial fibrillation. The patient had atrial fibrillation after bypass surgery. She h as controlled rate. Currently, the patient is in sinus rhythm. Continue Multaq 400 mg twice daily a nd metoprolol 12.5 mg daily. We will monitor pulse. Eliquis can be resumed when Orthopedics okay. 6. Gastroesophageal reflux disease. We will continue Pepcid 20 mg p.o. b.i.d. 7. Dyslipidemia. Continue pravastatin 40 mg p.o. at bedtime. 8. Anxiety and depression. Continue Zoloft 50 mg p.o. daily. 9. Anemia, normocytic normochromic, continue ferrous sulfate one tablet p.o. daily. 10. Deep venous thrombosis prophylaxis. Patient is on aspirin b.i.d. per protocol. 11. Gastrointestinal prophylaxis, Pepcid 20 mg p.o. b.i.d. 12. Hypertension. Because of epidural, the patient's blood pressure runs low currently. We will ho ld all antihypertensive medication if blood pressure is less than 120. 13. CODE STATUS: The patient is FULL CODE. Patient's son is surrogate decision maker. Disposition plan based on clinical course. The patient's family members are [facility]. Thank you for the consult. We will follow up with you on a daily basis while in hospital.
[2017-05-16] MEDS: Ferrous Gluconate 324 MG TAB PO SCH ×2 (14:01→21:24)
[2017-05-16] MEDS: Metoprolol Tartrate 25 MG TAB PO SCH (14:02)
[2017-05-16] MEDS: Sodium Chloride 0.9% 1,000 ML IV SCH ×2 (14:02→20:02)
[2017-05-16] MEDS: hydrALAZINE 25 MG TAB PO SCH ×2 (14:02→21:27)
[2017-05-16] MEDS: Senokot S 8.6-50 MG TAB PO SCH ×2 (14:02→21:24)
[2017-05-16] MEDS: Clindamycin/D5W 900 MG in Premix Bag 1 BAG IVPB SCH ×2 (14:21→17:57)
[2017-05-16] MEDS: Sodium Chloride 1 GM TAB PO SCH (14:22)
[2017-05-16] MEDS: Ketorolac Tromethamine 30 MG/ML VIAL IVP SCH ×2 (14:22→17:58)
[2017-05-16] MEDS: Methimazole 5 MG TAB PO SCH (14:40)
[2017-05-16] MEDS ORDERED: Propofol 200 MG/20 ML VIAL ONE (17:22)
[2017-05-16] MEDS ORDERED: Ondansetron HCl/PF 4 MG/2 ML Vial ONE (17:22)
[2017-05-16] MEDS ORDERED: ePHEDrine/0.9% NaCl/PF SYRINGE 50 mg/10 ml ONE (17:22)
[2017-05-16] MEDS ORDERED: Lidocaine 1% PF 5 ML VIAL ONE (17:22)
[2017-05-16] MEDS ORDERED: Glycopyrrolate 0.2 MG/ML 5 ML SYRINGE ONE ×2 (17:22)
[2017-05-16] MEDS ORDERED: Dexamethasone 20 MG/5 ML VIAL ONE (17:22)
[2017-05-16] MEDS: Dronedarone HCl 400 MG TAB PO SCH (17:57)
[2017-05-16] MEDS: Atorvastatin Calcium 10 MG TAB PO SCH (21:24)
[2017-05-16] MEDS: Famotidine 20 MG TAB PO SCH (21:24)
[2017-05-17] MEDS: Ketorolac Tromethamine 30 MG/ML VIAL IVP SCH ×4 (00:09→17:11)
[2017-05-17] MEDS: Sodium Chloride 0.9% 1,000 ML IV SCH ×2 (04:27→17:06)
[2017-05-17 06:01] LABS: Hemoglobin 8.8 g/dL (12.0-16.0); Mean Corpuscular HGB CONC 32.7 g/dL (32.0-36.0); Mean Corpuscular Hemoglobin 30.7 pg (27.0-31.0); Mean Corpuscular Volume 93.9 fl (81.0-99.0); Mean Platelet Volume 6.7 fL (7.4-10.4); Platelet Count 280 thou/uL (130-400); RBC Distribution Width 13.6 % (11.5-14.5); Red Blood Cell (RBC) Count 2.86 mill/uL (4.20-5.40); White Blood Cell (WBC) Count 12.2 thou/uL (4.8-10.8)
[2017-05-17 06:16] LABS: Anion Gap 13 mmol/L (10-20); BUN (Urea Nitrogen) 31 mg/dL (9.8-20.1); Calc. Creatinine Clearance 45 mL/min (70-130); Calcium 8.9 mg/dL (7.8-10.44); Carbon Dioxide 21 mmol/L (23-31); Chloride 97 mmol/L (98-107); Estimated GFR-MDRD 56; Glucose 124 mg/dL (83-110); Sodium 126 mmol/L (136-145)
[2017-05-17] MEDS: hydrALAZINE 25 MG TAB PO SCH ×3 (06:49→21:30)
--- NOTE | 2017-05-17 10:26 | PDOC.PN ---
- Subjective Encounter Start Date: 05/17/17 Encounter Start Time: 08:50 -: old records requested/rev Patient seen and examined. No new complaints. No overnight events - Objective Resuscitation Status: Resuscitation Status FULL:Full Resuscitation MAR Reviewed: Yes Vital Signs & Weight: Vital Signs (12 hours) Temp Pulse Resp BP BP Pulse Ox 05/17/17 07:35 98.3 F 65 16 153/70 H 94 L 05/17/17 06:49 57 L 96/50 L 05/17/17 04:00 99.9 F H 57 L 18 116/53 L 92 L 05/17/17 00:00 98.6 F 58 L 18 118/55 L 92 L Weight Weight 139 lb I&O: 05/16/17 05/17/17 05/18/17 06:59 06:59 06:59 Intake Total 3373.0 Output Total 725 Balance 2648.0 Result Diagrams: 05/17/17 05:48 05/17/17 05:48 Additional Labs: Accuchecks 05/17/17 05/16/17 05/16/17 05:26 21:09 15:54 POC Glucose 119 H 211 H 217 H Phys Exam - Physical Examination Constitutional: NAD HEENT: PERRLA, moist MMs, sclera anicteric Neck: no JVD, supple Respiratory: no wheezing, no rales, no rhonchi Cardiovascular: RRR, no significant murmur, no rub Gastrointestinal: soft, non-tender, no distention, positive bowel sounds Musculoskeletal: no edema, pulses present Neurological: non-focal Lymphatic: no nodes Psychiatric: normal affect Skin: no rash, normal turgor Dx/Plan (1) Status post right hip replacement Code(s): Z96.641 - PRESENCE OF RIGHT ARTIFICIAL HIP JOINT Status: Acute (2) CAD (coronary artery disease) Code(s): I25.10 - ATHSCL HEART DISEASE OF [place] CORONARY ARTERY W/O ANG PCTRS Status: Chronic (3) Chronic anticoagulation Code(s): Z79.01 - RETIREMENT (CURRENT) USE OF ANTICOAGULANTS Status: Chronic (4) HTN (hypertension) Code(s): I10 - ESSENTIAL (PRIMARY) HYPERTENSION Status: Chronic Qualifiers: (5) Hyperlipidemia Code(s): E78.5 - HYPERLIPIDEMIA, UNSPECIFIED Status: Chronic Qualifiers: (6) Hyponatremia Code(s): E87.1 - HYPO-OSMOLALITY AND HYPONATREMIA Status: Chronic (7) Paroxysmal A-fib Code(s): I48.0 - PAROXYSMAL ATRIAL FIBRILLATION Status: Chronic - Plan cont current plan of care, plan discussed w/ family, PT/OT * continue epidural * aspirin for DVT prophylaxis * elliquis when ortho ok * hypotension resolved * fluid restriction for hyponatremia * medication reviewed as below * symptomatic treatment * will need rehab on discharge Review of Systems - Review of Systems ENT: negative: Ear Pain, Ear Discharge, Nose Pain, Nose Discharge, Nose Congestion, Mouth Pain, Mouth Swelling, Throat Pain, Throat Swelling, Other Respiratory: negative: Cough, Dry, Shortness of Breath, Hemoptysis, SOB with Excertion, Pleuritic Pain, Sputum, Wheezing Cardiovascular: negative: chest pain, palpitations, orthopnea, paroxysmal nocturnal dyspnea, edema, light headedness, other Gastrointestinal: negative: Nausea, Vomiting, Abdominal Pain, Diarrhea, Constipation, Melena, Hematochezia, Other Genitourinary: negative: Dysuria, Frequency, Incontinence, Hematuria, Retention , Other Musculoskeletal: negative: Neck Pain, Shoulder Pain, Arm Pain, Back Pain, Hand Pain, Leg Pain, Foot Pain, Other Skin: negative: Rash, Lesions, Chepe, Bruising, Other - Medications/Allergies Allergies/Adverse Reactions: Allergies Allergy/AdvReac Type Severity Reaction Status Date / Time Iodinated Contrast- Oral and Allergy Verified 05/16/17 20:17 IV Dye iodine Allergy Verified 05/16/17 20:17 pneumococcal 7-valent Allergy Verified 05/16/17 20:17 conjugate to [From Prevnar] Medications: Current Medications Acetaminophen (Tylenol) 650 mg PO Q4H PRN PRN Reason: WLALS/ T > 101F; Mild Pain (1-3) Hydrocodone Bitart/Acetaminophen ([place] 5/325) 1 tab PO Q4H PRN PRN Reason: Mild Pain 0-3 Hydrocodone Bitart/Acetaminophen ([place] 5/325) 2 tab PO Q4H PRN PRN Reason: For Moderate Pain 4-6 Hydrocodone Bitart/Acetaminophen ([place] 10/325) 1 tab PO Q4H PRN PRN Reason: Moderate Pain (4-6) Hydrocodone Bitart/Acetaminophen ([place] 10/325) 2 tab PO Q4H PRN PRN Reason: Severe Pain (7-10) Al Hydroxide/Mg Hydroxide (Maalox) 15 ml PO Q4H PRN PRN Reason: Heartburn or Indigestion Artificial Tears (Tears Naturale) 0 drop EA EYE PRN PRN PRN Reason: Dry Eyes Aspirin (Aspirin Chewable) 81 mg PO BID [facility] Last Admin: 05/16/17 21:24 Dose: 81 mg Atorvastatin Calcium (Lipitor) 10 mg PO HS [facility] Last Admin: 05/16/17 21:24 Dose: 10 mg Bisacodyl (Dulcolax) 10 mg DC DAILYPRN PRN PRN Reason: Constipation Cholecalciferol (Vitamin D3) 5,000 units PO DAILY [facility] Last Admin: 05/16/17 14:01 Dose: Not Given Dextrose/Water (Dextrose 50%) 25 gm SLOW IVP PRN PRN PRN Reason: Hypoglycemia Diphenhydramine HCl (Benadryl) 25 mg PO Q3H PRN PRN Reason: Itching Diphenhydramine HCl (Benadryl) 25 mg IM Q3H PRN PRN Reason: Itching Diphenhydramine HCl (Benadryl) 25 mg IVP Q3H PRN PRN Reason: Itching Diphenhydramine HCl (Benadryl) 25 mg PO Q6H PRN PRN Reason: Itching Dronedarone (Multaq) 400 mg PO BID-[facility] Last Admin: 05/16/17 17:57 Dose: 400 mg Famotidine (Pepcid) 20 mg PO BID [facility] Last Admin: 05/16/17 21:24 Dose: 20 mg Fentanyl (Sublimaze) 50 mcg SLOW IVP Q30MIN PRN PRN Reason: Moderate Pain (4-6) Ferrous Gluconate (Fergon) 324 mg PO BID [facility] Last Admin: 05/16/17 21:24 Dose: 324 mg Glucagon (Glucagon) 1 mg IM PRN PRN PRN Reason: Hypoglycemia Guaifenesin (Robitussin Sf) 200 mg PO Q4H PRN PRN Reason: Cough Hydralazine HCl (Apresoline) 25 mg PO Q8HR [facility] Last Admin: 05/17/17 06:49 Dose: Not Given Hydralazine HCl (Apresoline) 10 mg SLOW IVP Q4H PRN PRN Reason: Systolic BP > 180 Fentanyl Citrate 250 ml/ (Device) 250 mls @ 6 mls/hr EPIDURAL INF [facility] Sodium Chloride (Normal Saline 0.9%) 1,000 mls @ 100 mls/hr IV .Q10H [facility] Last Admin: 05/17/17 04:27 Dose: Not Given Dextrose/Water (D5w) 1,000 mls @ 0 mls/hr IV .Q0M PRN; As Directed PRN Reason: Hypoglycemia Insulin Human Lispro (Humalog) 0 units SC .AGGRESSIVE SLIDING PRN PRN Reason: Aggressive Correctional Scale Last Admin: 05/16/17 21:33 Dose: 6 unit Iron/Minerals/Multivitamins (Theragran M) 1 tab PO DAILY [facility] Ketorolac Tromethamine (Toradol) 15 mg IVP Q6HR [facility] Stop: 05/18/17 06:01 Last Admin: 05/17/17 06:50 Dose: 15 mg Loperamide HCl (Imodium) 2 mg PO PRN PRN PRN Reason: Diarrhea/Loose Stools Losartan Potassium (Cozaar) 100 mg PO DAILY [facility] Magnesium Hydroxide (Milk Of Magnesium) 30 ml PO DAILYPRN PRN PRN Reason: Constipation Metformin HCl (Glucophage Xr) 500 mg PO BID [facility] Methimazole () 5 mg PO DAILY [facility] Last Admin: 05/16/17 14:40 Dose: Not Given Metoprolol Tartrate (Lopressor) 12.5 mg PO DAILY [facility] Last Admin: 05/16/17 14:02 Dose: Not Given Mineral Oil/White Petrolatum (Eucerin Cream) 0 gm TOP PRN PRN PRN Reason: Itching Naloxone HCl (Narcan) 0.2 mg IV Q5MIN PRN PRN Reason: RR <=8 OR OBTUNDED/UNAROUSABLE Naloxone HCl (Narcan) 0.1 mg IVP Q15MIN PRN PRN Reason: URINARY RETENTION See Lovenox (Precautions) 0 each FS .SEE CAUTIONS [facility] Ondansetron HCl (Zofran) 4 mg IVP Q6H PRN PRN Reason: Nausea/Vomiting Ondansetron HCl (Zofran) 4 mg IVP Q6H PRN PRN Reason: Nausea/Vomiting Pantoprazole Sodium (Protonix) 40 mg PO DAILY [facility] Phenol (Chloraseptic [place] 180 Ml Bot) 0 ml PO PRN PRN PRN Reason: Sore Throat Promethazine HCl (Phenergan) 12.5 mg IM Q4H PRN PRN Reason: Nausea Promethazine HCl (Phenergan Suppository) 25 mg DC Q4H PRN PRN Reason: Nausea/Vomiting Promethazine HCl (Phenergan) 12.5 mg IM Q4H PRN PRN Reason: Nausea/Vomiting Senna/Docusate Sodium (Senokot S) 2 tab PO BID [facility] Last Admin: 05/16/17 21:24 Dose: 2 tab Sertraline HCl (Zoloft) 100 mg PO HS [facility] Last Admin: 05/16/17 21:25 Dose: 100 mg Sodium Chloride (Sodium Chloride) 1 gm PO DAILY [facility] Last Admin: 05/16/17 14:22 Dose: Not Given Sodium Chloride (Flush - Normal Saline) 10 ml IVF PRN PRN PRN Reason: Saline Flush Tramadol HCl (Ultram) 50 mg PO Q6H PRN PRN Reason: Pain Tramadol HCl (Ultram) 100 mg PO Q6H PRN PRN Reason: Mild Pain (1-3) Zolpidem Tartrate (Ambien) 5 mg PO HSPRN PRN PRN Reason: Insomnia
[2017-05-17] MEDS: Losartan Potassium 25 MG TAB PO SCH (10:46)
[2017-05-17] MEDS: Senokot S 8.6-50 MG TAB PO SCH ×2 (10:46→21:29)
[2017-05-17] MEDS: Dronedarone HCl 400 MG TAB PO SCH ×2 (10:47→17:10)
[2017-05-17] MEDS: Famotidine 20 MG TAB PO SCH ×2 (10:47→21:28)
[2017-05-17] MEDS: Multivitamin W/ Minerals 1 TAB PO SCH (10:47)
[2017-05-17] MEDS: Ferrous Gluconate 324 MG TAB PO SCH ×2 (10:47→21:29)
[2017-05-17] MEDS: Metoprolol Tartrate 25 MG TAB PO SCH (10:47)
[2017-05-17] MEDS: Sodium Chloride 1 GM TAB PO SCH (10:48)
[2017-05-17] MEDS: metFORMIN XR 500 MG TAB PO SCH ×2 (10:48→21:29)
[2017-05-17] MEDS: Methimazole 5 MG TAB PO SCH (10:49)
[2017-05-17] MEDS: Atorvastatin Calcium 10 MG TAB PO SCH (21:28)
[2017-05-18] MEDS: Ketorolac Tromethamine 30 MG/ML VIAL IVP SCH ×2 (01:29→05:23)
[2017-05-18] MEDS: Sodium Chloride 0.9% 1,000 ML IV SCH ×3 (04:42→21:44)
[2017-05-18] MEDS ORDERED: BUPIVACAINE 0.75% EPIDURAL SCH (05:00)
[2017-05-18] MEDS ORDERED: FENTANYL EPIDURAL SCH (05:00)
[2017-05-18] MEDS ORDERED: SODIUM CHLORIDE 0.9% EPIDURAL SCH (05:00)
[2017-05-18] MEDS: hydrALAZINE 25 MG TAB PO SCH ×3 (05:24→21:42)
[2017-05-18 05:43] LABS: Hemoglobin 8.9 g/dL (12.0-16.0); Mean Corpuscular Hemoglobin 30.8 pg (27.0-31.0); Mean Corpuscular Volume 93.5 fl (81.0-99.0); Mean Platelet Volume 7.2 fL (7.4-10.4); Platelet Count 256 thou/uL (130-400); RBC Distribution Width 13.5 % (11.5-14.5); Red Blood Cell (RBC) Count 2.88 mill/uL (4.20-5.40); White Blood Cell (WBC) Count 13.5 thou/uL (4.8-10.8)
[2017-05-18 06:31] LABS: Anion Gap 11 mmol/L (10-20); BUN (Urea Nitrogen) 30 mg/dL (9.8-20.1); Calc. Creatinine Clearance 48 mL/min (70-130); Calcium 9.2 mg/dL (7.8-10.44); Carbon Dioxide 23 mmol/L (23-31); Chloride 97 mmol/L (98-107); Estimated GFR-MDRD 60; Glucose 102 mg/dL (83-110); Potassium 4.9 mmol/L (3.5-5.1); Sodium 126 mmol/L (136-145)
[2017-05-18] MEDS: Ferrous Gluconate 324 MG TAB PO SCH ×2 (08:08→21:42)
[2017-05-18] MEDS: Famotidine 20 MG TAB PO SCH ×2 (08:08→21:43)
[2017-05-18] MEDS: Multivitamin W/ Minerals 1 TAB PO SCH (08:08)
[2017-05-18] MEDS: Metoprolol Tartrate 25 MG TAB PO SCH (08:09)
[2017-05-18] MEDS: metFORMIN XR 500 MG TAB PO SCH ×2 (08:12→21:41)
[2017-05-18] MEDS: Senokot S 8.6-50 MG TAB PO SCH ×2 (08:12→21:41)
[2017-05-18] MEDS: Losartan Potassium 25 MG TAB PO SCH (08:12)
[2017-05-18] MEDS: Dronedarone HCl 400 MG TAB PO SCH ×2 (08:12→17:05)
[2017-05-18] MEDS: Sodium Chloride 1 GM TAB PO SCH (08:12)
[2017-05-18] MEDS: Methimazole 5 MG TAB PO SCH (08:13)
[2017-05-18] MEDS: HYDROcodone/Acetaminophen 5/325 mg Tablet PO PRN ×2 (09:14→13:41)
--- NOTE | 2017-05-18 10:14 | PDOC.PN ---
- Subjective Encounter Start Date: 05/18/17 Encounter Start Time: 08:20 Patient seen and examined. No new complaints. No overnight events - Objective Resuscitation Status: Resuscitation Status FULL:Full Resuscitation MAR Reviewed: Yes Vital Signs & Weight: Vital Signs (12 hours) Temp Pulse Resp BP BP BP Pulse Ox 05/18/17 07:30 98.5 F 69 16 161/69 H 94 L 05/18/17 05:24 59 L 154/86 H 05/18/17 05:00 98.0 F 62 16 154/86 H 90 L 05/18/17 00:09 97.6 F 53 L 17 135/74 92 L 05/18/17 00:00 97.6 F 53 L 17 135/74 92 L Weight Admit Weight 139 lb Weight 139 lb I&O: 05/17/17 05/18/17 05/19/17 06:59 06:59 06:59 Intake Total 3373.0 720 Output Total 725 380 Balance 2648.0 340 Result Diagrams: 05/18/17 05:11 05/18/17 05:11 Additional Labs: Accuchecks 05/18/17 05/17/17 05/17/17 05:33 21:03 17:49 POC Glucose 109 140 H 145 H 05/17/17 11:21 POC Glucose 152 H Phys Exam - Physical Examination Constitutional: NAD HEENT: PERRLA, moist MMs, sclera anicteric Neck: no JVD, supple Respiratory: no wheezing, no rales, no rhonchi Cardiovascular: RRR, no significant murmur, no rub Gastrointestinal: soft, non-tender, no distention, positive bowel sounds Musculoskeletal: no edema, pulses present Neurological: non-focal, normal sensation, moves all 4 limbs Psychiatric: normal affect, A&O x 3 Skin: no rash, normal turgor Dx/Plan (1) Status post right hip replacement Code(s): Z96.641 - PRESENCE OF RIGHT ARTIFICIAL HIP JOINT Status: Acute (2) CAD (coronary artery disease) Code(s): I25.10 - ATHSCL HEART DISEASE OF [place] CORONARY ARTERY W/O ANG PCTRS Status: Chronic (3) Chronic anticoagulation Code(s): Z79.01 - SENIOR LIVING (CURRENT) USE OF ANTICOAGULANTS Status: Chronic (4) HTN (hypertension) Code(s): I10 - ESSENTIAL (PRIMARY) HYPERTENSION Status: Chronic Qualifiers: (5) Hyperlipidemia Code(s): E78.5 - HYPERLIPIDEMIA, UNSPECIFIED Status: Chronic Qualifiers: (6) Hyponatremia Code(s): E87.1 - HYPO-OSMOLALITY AND HYPONATREMIA Status: Chronic (7) Paroxysmal A-fib Code(s): I48.0 - PAROXYSMAL ATRIAL FIBRILLATION Status: Chronic - Plan cont current plan of care, plan discussed w/ family, PT/OT, foster care social worker * medication reviewed as below * symptomatic treatment * pain controlled * monitor sodium * discussed with family. Review of Systems - Review of Systems ENT: negative: Ear Pain, Ear Discharge, Nose Pain, Nose Discharge, Nose Congestion, Mouth Pain, Mouth Swelling, Throat Pain, Throat Swelling, Other Respiratory: negative: Cough, Dry, Shortness of Breath, Hemoptysis, SOB with Excertion, Pleuritic Pain, Sputum, Wheezing Cardiovascular: negative: chest pain, palpitations, orthopnea, paroxysmal nocturnal dyspnea, edema, light headedness, other Gastrointestinal: negative: Nausea, Vomiting, Abdominal Pain, Diarrhea, Constipation, Melena, Hematochezia, Other Genitourinary: negative: Dysuria, Frequency, Incontinence, Hematuria, Retention , Other Musculoskeletal: negative: Neck Pain, Shoulder Pain, Arm Pain, Back Pain, Hand Pain, Leg Pain, Foot Pain, Other - Medications/Allergies Allergies/Adverse Reactions: Allergies Allergy/AdvReac Type Severity Reaction Status Date / Time Iodinated Contrast- Oral and Allergy Verified 05/16/17 20:17 IV Dye iodine Allergy Verified 05/16/17 20:17 pneumococcal 7-valent Allergy Verified 05/16/17 20:17 conjugate to [From Prevnar] Medications: Current Medications Acetaminophen (Tylenol) 650 mg PO Q4H PRN PRN Reason: WALLS/ T > 101F; Mild Pain (1-3) Hydrocodone Bitart/Acetaminophen ([place] 5/325) 1 tab PO Q4H PRN PRN Reason: Mild Pain 0-3 Hydrocodone Bitart/Acetaminophen ([place] 5/325) 2 tab PO Q4H PRN PRN Reason: For Moderate Pain 4-6 Last Admin: 05/18/17 09:14 Dose: 2 tab Al Hydroxide/Mg Hydroxide (Maalox) 15 ml PO Q4H PRN PRN Reason: Heartburn or Indigestion Artificial Tears (Tears Naturale) 0 drop EA EYE PRN PRN PRN Reason: Dry Eyes Aspirin (Aspirin Chewable) 81 mg PO BID [facility] Last Admin: 05/18/17 08:12 Dose: 81 mg Atorvastatin Calcium (Lipitor) 10 mg PO HS [facility] Last Admin: 05/17/17 21:28 Dose: 10 mg Bisacodyl (Dulcolax) 10 mg [place] DAILYPRN PRN PRN Reason: Constipation Cholecalciferol (Vitamin D3) 5,000 units PO DAILY [facility] Last Admin: 05/18/17 08:08 Dose: 5,000 units Dextrose/Water (Dextrose 50%) 25 gm SLOW IVP PRN PRN PRN Reason: Hypoglycemia Diphenhydramine HCl (Benadryl) 25 mg PO Q3H PRN PRN Reason: Itching Diphenhydramine HCl (Benadryl) 25 mg IM Q3H PRN PRN Reason: Itching Diphenhydramine HCl (Benadryl) 25 mg IVP Q3H PRN PRN Reason: Itching Diphenhydramine HCl (Benadryl) 25 mg PO Q6H PRN PRN Reason: Itching Dronedarone (Multaq) 400 mg PO BID[facility] Last Admin: 05/18/17 08:12 Dose: 400 mg Famotidine (Pepcid) 20 mg PO BID [facility] Last Admin: 05/18/17 08:08 Dose: 20 mg Fentanyl (Sublimaze) 50 mcg SLOW IVP Q30MIN PRN PRN Reason: Moderate Pain (4-6) Ferrous Gluconate (Fergon) 324 mg PO BID [facility] Last Admin: 05/18/17 08:08 Dose: 324 mg Glucagon (Glucagon) 1 mg IM PRN PRN PRN Reason: Hypoglycemia Guaifenesin (Robitussin Sf) 200 mg PO Q4H PRN PRN Reason: Cough Hydralazine HCl (Apresoline) 25 mg PO Q8HR [facility] Last Admin: 05/18/17 05:24 Dose: 25 mg Hydralazine HCl (Apresoline) 10 mg SLOW IVP Q4H PRN PRN Reason: Systolic BP > 180 Sodium Chloride (Normal Saline 0.9%) 1,000 mls @ 100 mls/hr IV .Q10H [facility] Last Admin: 05/18/17 04:42 Dose: 1,000 mls Dextrose/Water (D5w) 1,000 mls @ 0 mls/hr IV .Q0M PRN; As Directed PRN Reason: Hypoglycemia Fentanyl 1,250 mcg/Bupivacaine HCl 25 ml/ Sodium Chloride 250 mls @ 6 mls/hr EPIDURAL INF [facility] Last Admin: 05/18/17 05:22 Dose: 250 mls Insulin Human Lispro (Humalog) 0 units [place] .AGGRESSIVE SLIDING PRN PRN Reason: Aggressive Correctional Scale Last Admin: 05/16/17 21:33 Dose: 6 unit Iron/Minerals/Multivitamins (Theragran M) 1 tab PO DAILY [facility] Last Admin: 05/18/17 08:08 Dose: 1 tab Loperamide HCl (Imodium) 2 mg PO PRN PRN PRN Reason: Diarrhea/Loose Stools Losartan Potassium (Cozaar) 100 mg PO DAILY [facility] Last Admin: 05/18/17 08:12 Dose: 100 mg Magnesium Hydroxide (Milk Of Magnesium) 30 ml PO DAILYPRN PRN PRN Reason: Constipation Metformin HCl (Glucophage Xr) 500 mg PO BID [facility] Last Admin: 05/18/17 08:12 Dose: 500 mg Methimazole () 5 mg PO DAILY [facility] Last Admin: 05/18/17 08:13 Dose: 5 mg Metoprolol Tartrate (Lopressor) 12.5 mg PO DAILY [facility] Last Admin: 05/18/17 08:09 Dose: 12.5 mg Mineral Oil/White Petrolatum (Eucerin Cream) 0 gm TOP PRN PRN PRN Reason: Itching Naloxone HCl (Narcan) 0.2 mg IV Q5MIN PRN PRN Reason: RR <=8 OR OBTUNDED/UNAROUSABLE Naloxone HCl (Narcan) 0.1 mg IVP Q15MIN PRN PRN Reason: URINARY RETENTION See Lovenox (Precautions) 0 each FS .SEE CAUTIONS [facility] Ondansetron HCl (Zofran) 4 mg IVP Q6H PRN PRN Reason: Nausea/Vomiting Ondansetron HCl (Zofran) 4 mg IVP Q6H PRN PRN Reason: Nausea/Vomiting Pantoprazole Sodium (Protonix) 40 mg PO DAILY [facility] Last Admin: 05/18/17 08:12 Dose: 40 mg Phenol (Chloraseptic [place] 180 Ml Bot) 0 ml PO PRN PRN PRN Reason: Sore Throat Promethazine HCl (Phenergan) 12.5 mg IM Q4H PRN PRN Reason: Nausea Promethazine HCl (Phenergan Suppository) 25 mg [place] Q4H PRN PRN Reason: Nausea/Vomiting Promethazine HCl (Phenergan) 12.5 mg IM Q4H PRN PRN Reason: Nausea/Vomiting Senna/Docusate Sodium (Senokot S) 2 tab PO BID [facility] Last Admin: 05/18/17 08:12 Dose: 2 tab Sertraline HCl (Zoloft) 100 mg PO HS [facility] Last Admin: 05/17/17 21:30 Dose: Not Given Sodium Chloride (Sodium Chloride) 1 gm PO DAILY [facility] Last Admin: 05/18/17 08:12 Dose: 1 gm Sodium Chloride (Flush - Normal Saline) 10 ml IVF PRN PRN PRN Reason: Saline Flush Tramadol HCl (Ultram) 50 mg PO Q6H PRN PRN Reason: Pain Tramadol HCl (Ultram) 100 mg PO Q6H PRN PRN Reason: Mild Pain (1-3) Zolpidem Tartrate (Ambien) 5 mg PO HSPRN PRN PRN Reason: Insomnia
[2017-05-18] MEDS: Atorvastatin Calcium 10 MG TAB PO SCH (21:43)
[2017-05-19] MEDS: HYDROcodone/Acetaminophen 5/325 mg Tablet PO PRN ×2 (01:32→10:07)
[2017-05-19] MEDS: hydrALAZINE 25 MG TAB PO SCH (05:20)
[2017-05-19 06:34] LABS: Hemoglobin 8.8 g/dL (12.0-16.0); Mean Corpuscular HGB CONC 33.1 g/dL (32.0-36.0); Mean Corpuscular Volume 93.6 fl (81.0-99.0); Mean Platelet Volume 7.2 fL (7.4-10.4); Platelet Count 281 thou/uL (130-400); RBC Distribution Width 13.2 % (11.5-14.5); Red Blood Cell (RBC) Count 2.85 mill/uL (4.20-5.40); White Blood Cell (WBC) Count 13.2 thou/uL (4.8-10.8)
[2017-05-19] MEDS: Metoprolol Tartrate 25 MG TAB PO SCH (08:35)
[2017-05-19] MEDS: Dronedarone HCl 400 MG TAB PO SCH (08:35)
[2017-05-19] MEDS: Losartan Potassium 25 MG TAB PO SCH (08:35)
[2017-05-19] MEDS: Famotidine 20 MG TAB PO SCH (08:37)
[2017-05-19] MEDS: metFORMIN XR 500 MG TAB PO SCH (08:37)
[2017-05-19] MEDS: Multivitamin W/ Minerals 1 TAB PO SCH (08:37)
[2017-05-19] MEDS: Ferrous Gluconate 324 MG TAB PO SCH (08:37)
[2017-05-19] MEDS: Sodium Chloride 1 GM TAB PO SCH (08:38)
[2017-05-19] MEDS: Methimazole 5 MG TAB PO SCH (08:38)
[2017-05-19 08:52] VITALS: BP 134/62; TEMP 97.9
--- NOTE | 2017-05-19 10:20 | PDOC.PN ---
- Subjective Encounter Start Date: 05/19/17 Encounter Start Time: 07:40 Patient seen and examined. No new complaints. No overnight events - Objective Resuscitation Status: Resuscitation Status FULL:Full Resuscitation MAR Reviewed: Yes Vital Signs & Weight: Vital Signs (12 hours) Temp Pulse Resp BP BP Pulse Ox 05/19/17 08:00 97.9 F 50 L 12 93 L 05/19/17 07:24 97.9 F 50 L 12 134/62 93 L 05/19/17 05:20 54 L 154/68 H 05/19/17 04:00 98.2 F 59 L 16 154/68 H 95 05/19/17 00:00 98.6 F 57 L 18 161/69 H 94 L Weight Admit Weight 139 lb Weight 139 lb I&O: 05/18/17 05/19/17 05/20/17 06:59 06:59 06:59 Intake Total 720 Output Total 380 475 Balance 340 -475 Result Diagrams: 05/19/17 05:51 05/18/17 05:11 Additional Labs: Accuchecks 05/19/17 05/18/17 05/18/17 06:04 19:53 15:28 POC Glucose 135 H 166 H 150 H 05/18/17 11:47 POC Glucose 142 H Phys Exam - Physical Examination Constitutional: NAD HEENT: PERRLA, moist MMs, sclera anicteric Neck: no JVD, supple Respiratory: no wheezing, no rales, no rhonchi Cardiovascular: RRR, no significant murmur, no rub Gastrointestinal: soft, non-tender, no distention, positive bowel sounds Musculoskeletal: no edema, pulses present Neurological: non-focal, normal sensation, moves all 4 limbs Psychiatric: normal affect, A&O x 3 Skin: no rash, normal turgor Dx/Plan (1) Status post right hip replacement Code(s): Z96.641 - PRESENCE OF RIGHT ARTIFICIAL HIP JOINT Status: Acute (2) CAD (coronary artery disease) Code(s): I25.10 - ATHSCL HEART DISEASE OF [place] CORONARY ARTERY W/O ANG PCTRS Status: Chronic (3) Chronic anticoagulation Code(s): Z79.01 - TELEGRAPHIC TYPEWR[employer] OPERATOR (CURRENT) USE OF ANTICOAGULANTS Status: Chronic (4) HTN (hypertension) Code(s): I10 - ESSENTIAL (PRIMARY) HYPERTENSION Status: Chronic Qualifiers: (5) Hyperlipidemia Code(s): E78.5 - HYPERLIPIDEMIA, UNSPECIFIED Status: Chronic Qualifiers: (6) Hyponatremia Code(s): E87.1 - HYPO-OSMOLALITY AND HYPONATREMIA Status: Chronic (7) Paroxysmal A-fib Code(s): I48.0 - PAROXYSMAL ATRIAL FIBRILLATION Status: Chronic - Plan cont current plan of care, PT/OT, social service manager * medication reviewed as below * symptomatic treatment * stable medically * possible discharge today. Review of Systems - Review of Systems ENT: negative: Ear Pain, Ear Discharge, Nose Pain, Nose Discharge, Nose Congestion, Mouth Pain, Mouth Swelling, Throat Pain, Throat Swelling, Other Respiratory: negative: Cough, Dry, Shortness of Breath, Hemoptysis, SOB with Excertion, Pleuritic Pain, Sputum, Wheezing Cardiovascular: negative: chest pain, palpitations, orthopnea, paroxysmal nocturnal dyspnea, edema, light headedness, other Gastrointestinal: negative: Nausea, Vomiting, Abdominal Pain, Diarrhea, Constipation, Melena, Hematochezia, Other Genitourinary: negative: Dysuria, Frequency, Incontinence, Hematuria, Retention , Other Musculoskeletal: negative: Neck Pain, Shoulder Pain, Arm Pain, Back Pain, Hand Pain, Leg Pain, Foot Pain, Other Skin: negative: Rash, Lesions, [place], Bruising, Other - Medications/Allergies Allergies/Adverse Reactions: Allergies Allergy/AdvReac Type Severity Reaction Status Date / Time Iodinated Contrast- Oral and Allergy Verified 05/16/17 20:17 IV Dye iodine Allergy Verified 05/16/17 20:17 pneumococcal 7-valent Allergy Verified 05/16/17 20:17 conjugate to [From Prevnar] Medications: Current Medications Acetaminophen (Tylenol) 650 mg PO Q4H PRN PRN Reason: WALLS/ T > 101F; Mild Pain (1-3) Hydrocodone Bitart/Acetaminophen ([place] 5/325) 1 tab PO Q4H PRN PRN Reason: Mild Pain 0-3 Hydrocodone Bitart/Acetaminophen ([place] 5/325) 2 tab PO Q4H PRN PRN Reason: For Moderate Pain 4-6 Last Admin: 05/19/17 10:07 Dose: 2 tab Al Hydroxide/Mg Hydroxide (Maalox) 15 ml PO Q4H PRN PRN Reason: Heartburn or Indigestion Artificial Tears (Tears Naturale) 0 drop EA EYE PRN PRN PRN Reason: Dry Eyes Aspirin (Aspirin Chewable) 81 mg PO BID [facility] Last Admin: 05/19/17 08:35 Dose: 81 mg Atorvastatin Calcium (Lipitor) 10 mg PO HS [facility] Last Admin: 05/18/17 21:43 Dose: 10 mg Bisacodyl (Dulcolax) 10 mg [place] DAILYPRN PRN PRN Reason: Constipation Cholecalciferol (Vitamin D3) 5,000 units PO DAILY [facility] Last Admin: 05/19/17 08:37 Dose: 5,000 units Dextrose/Water (Dextrose 50%) 25 gm SLOW IVP PRN PRN PRN Reason: Hypoglycemia Diphenhydramine HCl (Benadryl) 25 mg PO Q3H PRN PRN Reason: Itching Diphenhydramine HCl (Benadryl) 25 mg IM Q3H PRN PRN Reason: Itching Diphenhydramine HCl (Benadryl) 25 mg IVP Q3H PRN PRN Reason: Itching Diphenhydramine HCl (Benadryl) 25 mg PO Q6H PRN PRN Reason: Itching Dronedarone (Multaq) 400 mg PO BID[facility] Last Admin: 05/19/17 08:35 Dose: 400 mg Famotidine (Pepcid) 20 mg PO BID [facility] Last Admin: 05/19/17 08:37 Dose: 20 mg Fentanyl (Sublimaze) 50 mcg SLOW IVP Q30MIN PRN PRN Reason: Moderate Pain (4-6) Ferrous Gluconate (Fergon) 324 mg PO BID [facility] Last Admin: 05/19/17 08:37 Dose: 324 mg Glucagon (Glucagon) 1 mg IM PRN PRN PRN Reason: Hypoglycemia Guaifenesin (Robitussin Sf) 200 mg PO Q4H PRN PRN Reason: Cough Hydralazine HCl (Apresoline) 25 mg PO Q8HR [facility] Last Admin: 05/19/17 05:20 Dose: 25 mg Hydralazine HCl (Apresoline) 10 mg SLOW IVP Q4H PRN PRN Reason: Systolic BP > 180 Sodium Chloride (Normal Saline 0.9%) 1,000 mls @ 100 mls/hr IV .Q10H [facility] Last Admin: 05/18/17 21:44 Dose: Not Given Dextrose/Water (D5w) 1,000 mls @ 0 mls/hr IV .Q0M PRN; As Directed PRN Reason: Hypoglycemia Fentanyl 1,250 mcg/Bupivacaine HCl 25 ml/ Sodium Chloride 250 mls @ 6 mls/hr EPIDURAL INF [facility] Last Admin: 05/18/17 05:22 Dose: 250 mls Insulin Human Lispro (Humalog) 0 units [place] .AGGRESSIVE SLIDING PRN PRN Reason: Aggressive Correctional Scale Last Admin: 05/16/17 21:33 Dose: 6 unit Iron/Minerals/Multivitamins (Theragran M) 1 tab PO DAILY [facility] Last Admin: 05/19/17 08:37 Dose: 1 tab Loperamide HCl (Imodium) 2 mg PO PRN PRN PRN Reason: Diarrhea/Loose Stools Losartan Potassium (Cozaar) 100 mg PO DAILY [facility] Last Admin: 05/19/17 08:35 Dose: 100 mg Magnesium Hydroxide (Milk Of Magnesium) 30 ml PO DAILYPRN PRN PRN Reason: Constipation Metformin HCl (Glucophage Xr) 500 mg PO BID [facility] Last Admin: 05/19/17 08:37 Dose: 500 mg Methimazole () 5 mg PO DAILY [facility] Last Admin: 05/19/17 08:38 Dose: 5 mg Metoprolol Tartrate (Lopressor) 12.5 mg PO DAILY [facility] Last Admin: 05/19/17 08:35 Dose: 12.5 mg Mineral Oil/White Petrolatum (Eucerin Cream) 0 gm TOP PRN PRN PRN Reason: Itching Naloxone HCl (Narcan) 0.2 mg IV Q5MIN PRN PRN Reason: RR <=8 OR OBTUNDED/UNAROUSABLE Naloxone HCl (Narcan) 0.1 mg IVP Q15MIN PRN PRN Reason: URINARY RETENTION See Lovenox (Precautions) 0 each FS .SEE CAUTIONS [facility] Ondansetron HCl (Zofran) 4 mg IVP Q6H PRN PRN Reason: Nausea/Vomiting Ondansetron HCl (Zofran) 4 mg IVP Q6H PRN PRN Reason: Nausea/Vomiting Pantoprazole Sodium (Protonix) 40 mg PO DAILY [facility] Last Admin: 05/19/17 08:37 Dose: 40 mg Phenol (Chloraseptic [place] 180 Ml Bot) 0 ml PO PRN PRN PRN Reason: Sore Throat Promethazine HCl (Phenergan) 12.5 mg IM Q4H PRN PRN Reason: Nausea Promethazine HCl (Phenergan Suppository) 25 mg MS Q4H PRN PRN Reason: Nausea/Vomiting Promethazine HCl (Phenergan) 12.5 mg IM Q4H PRN PRN Reason: Nausea/Vomiting Senna/Docusate Sodium (Senokot S) 2 tab PO BID [facility] Last Admin: 05/18/17 21:41 Dose: 2 tab Sertraline HCl (Zoloft) 100 mg PO HS [facility] Last Admin: 05/18/17 21:43 Dose: 100 mg Sodium Chloride (Sodium Chloride) 1 gm PO DAILY [facility] Last Admin: 05/19/17 08:38 Dose: 1 gm Sodium Chloride (Flush - Normal Saline) 10 ml IVF PRN PRN PRN Reason: Saline Flush Tramadol HCl (Ultram) 50 mg PO Q6H PRN PRN Reason: Pain Tramadol HCl (Ultram) 100 mg PO Q6H PRN PRN Reason: Mild Pain (1-3) Zolpidem Tartrate (Ambien) 5 mg PO HSPRN PRN PRN Reason: Insomnia
--- NOTE | 2017-05-19 11:14 | DIS ---
PRIMARY CARE PHYSICIAN: Anny Shankar DATE OF ADMISSION: 05/16/2017 DATE OF DISCHARGE: 05/19/2017 DISCHARGE DISPOSITION: Rehab. PRIMARY DISCHARGE DIAGNOSIS: Status post right total hip replacement. SECONDARY DISCHARGE DIAGNOSES: Coronary artery disease, chronic anticoagulation, hypertension, dysli pidemia, paroxysmal atrial fibrillation, chronic hyponatremia. PRIMARY PROCEDURE/OPERATION: Right hip replacement. RADIOLOGICAL INVESTIGATION: Hip x-ray. SIGNIFICANT LABS: Hemoglobin 8.8, sodium 126, creatinine 0.90. DISCHARGE MEDICATIONS: Tylenol 2 tablets q.8h. p.r.n., Tylenol PM 1 tablet p.o. at bedtime p.r.n., E liquis 5 mg p.o. b.i.d., aspirin 81 mg p.o. daily, vitamin D3 5000 units p.o. daily, Multaq 400 mg p. o. b.i.d., hydralazine 25 mg p.o. q.8h, [place] 1-2 tablets q.4h. p.r.n., losartan 100 mg p.o. daily, m etformin 500 mg p.o. b.i.d., methimazole 5 mg p.o. daily, metoprolol 12.5 mg p.o. daily, multivitamin 1 tablet p.o. daily, omeprazole 20 mg p.o. daily, pravastatin 40 mg p.o. at bedtime, Zoloft 100 mg p .o. at bedtime, sodium chloride 1 gram p.o. daily, tramadol 50 mg q.6 hourly p.r.n. CONTRAINDICATIONS: None. CODE STATUS: FULL CODE. INPATIENT CONSULTANTS: Dr. Temple was primary while in hospital. [facility] Team was consulted for medic al comanagement. TEST RESULTS PENDING ON DISCHARGE: None. ALLERGIES: IODINATED CONTRAST MEDIA. DISCHARGE PLAN: Post hospital, the patient will follow up with primary care physician and Dr. Temple as instructed. HOSPITAL COURSE: An 81-year-old female who was electively admitted by Dr. Temple for right total hip replacement which was done on 05/16/2017. After surgery [employer] Team was consulted for medical comana gement. The patient's medical problems remained stable. We controlled her pain with pain medication . She was given aspirin for DVT prophylaxis. She is planned for discharge to rehab. The patient is seen and examined at bedside today. Please see progress note for further details. We will sign off .
== END 2017-05-19 11:17 | DRG 470 ==
LOC: SJJU 05-16 06:00
PROVIDERS: ADMIT Orthopaedic Surgery; ATTEND Orthopaedic Surgery
PROC: 0SR902A Replacement of Right Hip Joint with Metal on Polyethylene Synthetic Substitute, Uncemented, Open Approach (ICD-10-PCS; principal; 2017-05-16)
PROC: 3E0T3BZ Introduction of Anesthetic Agent into Peripheral Nerves and Plexi, Percutaneous Approach (ICD-10-PCS; 2017-05-16)
DX: M16.11 Unilateral primary osteoarthritis, right hip (principal); E87.5 Hyperkalemia; I48.0 Paroxysmal atrial fibrillation; E87.1 Hypo-osmolality and hyponatremia; E11.9 Type 2 diabetes mellitus without complications; D64.9 Anemia, unspecified; Z95.1 Presence of aortocoronary bypass graft; M17.11 Unilateral primary osteoarthritis, right knee; I25.10 Atherosclerotic heart disease of native coronary artery without angina pectoris; E78.5 Hyperlipidemia, unspecified; I10 Essential (primary) hypertension; K21.9 Gastro-esophageal reflux disease without esophagitis; E03.9 Hypothyroidism, unspecified; F32.9 Major depressive disorder, single episode, unspecified; F41.9 Anxiety disorder, unspecified; Z79.01 Long term (current) use of anticoagulants; Z91.041 Radiographic dye allergy status; Z91.09 Other allergy status, other than to drugs and biological substances
CPT/HCPCS: 36415; 36416; 80048; 85027; 87086; C1776; G8978-GP-CL; G8979-GP-CK; G8987-GO-CL; G8988-GO-CJ; J1100; J1885; J2001; J2405; J2704; J3010; J3370; J3490; J7050

== ENCOUNTER 2017-10-10 13:20 | Outpatient (CLI) | payer MEDICARE ==
--- NOTE | 2017-10-10 15:14 | RAD ---
TWO VIEWS RIGHT AND LEFT HIP: History: Bilateral hip pain. FINDINGS: AP and frogleg views of bilateral hips obtained. Images demonstrate bilateral hip arthroplasty. Femoral and acetabular components are in good position . No evidence of fractures or loosening seen. Atherosclerotic calcification seen in the right and left superficial femoral arteries. IMPRESSION: Bilateral hip arthroplasty without evidence of fractures or loosening. POS: C
== END 2017-10-10 13:21 | disposition home or self-care (01) ==
LOC: RAD-FRANK 13:20
PROVIDERS: ATTEND Nurse Practitioner Family
DX: R53.1 Weakness (principal); R53.81 Other malaise; Z96.641 Presence of right artificial hip joint; Z96.642 Presence of left artificial hip joint
CPT/HCPCS: 73521

== ENCOUNTER 2017-10-11 17:50 | Inpatient (IN) | payer MEDICARE ==
[2017-10-11 18:19] LABS: #Lymphocytes 5.1 thou/uL (1.20-3.40); #Monocytes 1.2 thou/uL (0.11-0.59); #Neutrophils 3.7 thou/uL (1.40-6.50); %Basophils 0.3 % (0.0-1.0); %Eosinophils 9.1 % (0.0-10.0); %Lymphocytes 46.5 % (21.0-51.0); %Monocytes 10.5 % (0.0-10.0); %Neutrophils 33.6 % (42.0-75.0); Hemoglobin 12.1 g/dL (12.0-16.0); Mean Corpuscular HGB CONC 34.5 g/dL (32.0-36.0); Mean Corpuscular Hemoglobin 30.2 pg (27.0-31.0); Mean Corpuscular Volume 87.5 fl (81.0-99.0); Mean Platelet Volume 6.4 fL (7.4-10.4); Platelet Count 353 thou/uL (130-400); RBC Distribution Width 14.8 % (11.5-14.5); Red Blood Cell (RBC) Count 4.02 mill/uL (4.20-5.40)
[2017-10-11 18:43] LABS: ALT (SGPT) 20 U/L (8-55); AST (SGOT) 23 U/L (5-34); Alkaline Phosphatase 60 U/L (40-150); Anion Gap 12 mmol/L (10-20); BUN (Urea Nitrogen) 20 mg/dL (9.8-20.1); Bilirubin, Total 0.3 mg/dL (0.2-1.2); Calc. Creatinine Clearance 0 mL/min (70-130); Calcium 9.7 mg/dL (7.8-10.44); Carbon Dioxide 24 mmol/L (23-31); Chloride 92 mmol/L (98-107); Estimated GFR-MDRD 72; Globulin 2.9 g/dL (2.4-3.5); Glucose 95 mg/dL (83-110); Potassium 4.8 mmol/L (3.5-5.1); Protein, Total 6.9 g/dL (6.0-8.3); Sodium 123 mmol/L (136-145)
[2017-10-11] MEDS ORDERED: Acetaminophen 325 MG TAB PO PRN (23:23)
[2017-10-11] MEDS ORDERED: Bisacodyl 5 MG TAB PO PRN (23:23)
[2017-10-11] MEDS ORDERED: Dextrose 5% in Water 1,000 ML IV PRN (23:39)
[2017-10-11] MEDS ORDERED: Dextrose 50% Abboject 50 ML SYRINGE SLOW IVP PRN (23:39)
[2017-10-11] MEDS ORDERED: HumaLOG 300 UNITS/3 ML VIAL SC PRN (23:39)
[2017-10-12] MEDS: Sodium Chloride 0.9% 1,000 ML IV SCH ×2 (00:11→16:50)
--- NOTE | 2017-10-12 00:16 | HP ---
PRIMARY CARE PROVIDER: SHELBY Macedo CHIEF COMPLAINT: Hyponatremia. HISTORY OF PRESENT ILLNESS: Ms. Guillen is a pleasant 81-year-old lady who was seen at [facility] on 10/11/2017 after she was sent to the emergency room by her primary care phil og. She was hospitalized at this facility in 05/2017 for right hip surgery. Following the surgery, she r eportedly was participating in rehabilitation. She showed significant improvement, according to her son, but subsequently she declined in terms of mobility. She reports having a cough over the last 3 weeks. She denies any fevers. She denies any chest pain or shortness of breath. Over the last few days, she could not stay standing for more than a few seco nds. She reports occasional shortness of breath in the morning. She was seen by her primary care provider and was found to be hyponatremic. She was sent to the [facility] room for further management. She denies any seizures. She was also hospitalized in 04/2017 for hyponatremia and bradycardia. At the time of discharge, she was discharged home on sodium for 1 week. Her son reports that she takes minimal amount of sodium a t home in her diet. PAST MEDICAL HISTORY: Hypertension, dyslipidemia, diabetes mellitus type 2, asthma, 3-vessel coronar y artery disease status post coronary artery bypass graft, hyperthyroidism, and gastroesophageal refl ux disease. PSYCHIATRIC HISTORY: Anxiety and depression. PAST SURGICAL HISTORY: Tonsillectomy, left hip replacement, right hip surgery, hysterectomy, catarac t surgery, bladder suspension, sinus surgery, coronary artery bypass graft x3 and cardiac catheteriza tion. SOCIAL HISTORY: No history of tobacco use, alcohol use or recreational drug use. FAMILY HISTORY: No family history of premature coronary artery disease. ALLERGIES: IODINE and IODINATED CONTRAST MEDIA. CURRENT MEDICATIONS: Eliquis 5 mg 2 times a day, Multaq 200 mg 2 times a day, losartan 25 mg daily, metformin 500 mg 2 times a day, methimazole 5 mg daily, metoprolol tartrate 12.5 mg daily, hydralazin e 25 mg 2 times a day, pravastatin 40 mg daily, sertraline 50 mg daily, tramadol 50 mg as needed, asp irin 81 mg daily, iron 325 mg daily, and multivitamins 1 tablet daily. CODE STATUS: I discussed her code status. She wishes to be FULL CODE. Her son is the surrogate dec felipeon maker. PHYSICAL EXAMINATION: GENERAL: On examination, Ms. Guillen is awake and alert, not in acute distress. VITAL SIGNS: Blood pressure is 160/67, pulse is 66. She is breathing at rate of 19 and saturating 9 6% on room air. She is afebrile. EYES: No scleral icterus, no conjunctival pallor. ENT: Moist mucosal membranes, no oropharyngeal erythema or exudates. NECK: Supple, nontender, normal range of movement, trachea is midline. RESPIRATORY: Accessory muscles of breathing are not active. Chest wall movements are symmetric bila terally. LUNGS: Clear to auscultation without wheeze, rhonchi, or crepitations. CARDIOVASCULAR: S1 and S2 are heard, regular. Peripheral pulses palpable. No carotid bruit, no per icardial rub. ABDOMEN: Soft, nontender, bowel sounds heard, no hepatomegaly, no splenomegaly. LYMPHATIC: No cervical lymphadenopathy. NEUROLOGIC: Cranial nerves II-XII intact, deep tendon reflexes are 2+. MUSCULOSKELETAL: Power is 5/5 in all 4 extremities. SKIN: No rashes or subcutaneous nodules. PSYCHIATRIC: Normal mood, normal affect, patient is oriented to person, place, and time. LABORATORY DATA: Ms. Guillen's labs and investigations were reviewed. She has leukocytosis with 11, 000 white cells, of which 33.6% are neutrophils and 10.5% are monocytes. She is hyponatremic with so dium of 123, normal potassium, and otherwise unremarkable comprehensive metabolic profile. ASSESSMENT AND PLAN: Ms. Guillen is a pleasant 81-year-old lady who was seen at [facility] on 10/11/2017. Her problem list includes: 1. Generalized weakness: Most likely secondary to hyponatremia. 2. Hyponatremia: Could be multifactorial, including lack of adequate amount of sodium in the diet. We will admit her to the hospital for further workup, including serum and urine osmolalities, urine electrolytes and creatinine. We will provide gentle hydration and recheck her sodium level in the mo rning to avoid overcorrection. We will start her on 1800 calorie diet, so that she gets some extra s odium with her diet, instead of starting her on low sodium diet. 3. Leukocytosis: We will check urine studies and chest x-ray to rule out any infection. The patien t does not have any symptoms other than cough for the last 3 weeks. 4. Atrial fibrillation: Continue apixaban. 5. Coronary artery disease: Appears to be stable. 6. Diabetes mellitus type 2: Continue metformin, start Accu-Cheks and insulin sliding scale. 7. Hyperthyroidism: Continue methimazole. 8. Dyslipidemia: Stable, continue statin. 9. Anxiety and depression: Continue Zoloft. 10. Hypertension: Continue antihypertensives as at home, monitor vital signs and titrate antihypert ensives as needed. Many thanks for allowing me to participate in your patient's care. Please feel free to contact me wi th any questions or concerns. LEVEL OF RISK: Moderate. LEVEL OF COMPLEXITY: Moderate.
[2017-10-12 00:46] VITALS: BMI 29.0
[2017-10-12 02:17] LABS: Bilirubin Negative (Negative); Blood, Urine Negative (Negative); Clarity CLEAR (Clear); Glucose, Urine (Dipstick) Negative (Negative); Leukocyte Trace (Negative); Nitrite Negative (Negative); Protein, Urine (Dipstick) Negative (Neg-Trace); Specific Gravity, Urine 1.006 (1.002-1.036); Urobilinogen 0.2 mg/dL (0.2-1.0); pH, Urine 6.5 (5.0-9.0)
[2017-10-12 02:20] LABS: Bacteria/HPF None Seen HPF (None Seen); Hyaline Casts/LPF 0-3 HYALINE CAST LPF (0-3 Hyaline); RBC/HPF 0-3 HPF (0-3); Squamous Epithelial None Seen HPF (0-3); WBC/HPF 0-3 HPF (0-3)
[2017-10-12 02:36] LABS: Potassium, Urine 13.7 mmol/L
[2017-10-12 04:39] LABS: #Eosinphils 1.1 thou/uL (0.0-0.7); #Lymphocytes 4.2 thou/uL (1.20-3.40); #Monocytes 1.2 thou/uL (0.11-0.59); #Neutrophils 3.7 thou/uL (1.40-6.50); %Basophils 0.4 % (0.0-1.0); %Eosinophils 10.4 % (0.0-10.0); %Lymphocytes 40.9 % (21.0-51.0); %Monocytes 12.1 % (0.0-10.0); %Neutrophils 36.3 % (42.0-75.0); Hemoglobin 11.6 g/dL (12.0-16.0); Mean Corpuscular HGB CONC 33.8 g/dL (32.0-36.0); Mean Corpuscular Hemoglobin 29.7 pg (27.0-31.0); Mean Corpuscular Volume 87.8 fl (81.0-99.0); Mean Platelet Volume 6.3 fL (7.4-10.4); Platelet Count 330 thou/uL (130-400); RBC Distribution Width 14.8 % (11.5-14.5); Red Blood Cell (RBC) Count 3.91 mill/uL (4.20-5.40); White Blood Cell (WBC) Count 10.3 thou/uL (4.8-10.8)
[2017-10-12 04:53] LABS: Anion Gap 10 mmol/L (10-20); BUN (Urea Nitrogen) 17 mg/dL (9.8-20.1); Calc. Creatinine Clearance 65 mL/min (70-130); Calcium 9.5 mg/dL (7.8-10.44); Carbon Dioxide 27 mmol/L (23-31); Chloride 97 mmol/L (98-107); Estimated GFR-MDRD 75; Glucose 95 mg/dL (83-110); Potassium 4.9 mmol/L (3.5-5.1); Sodium 129 mmol/L (136-145)
[2017-10-12] MEDS: hydrALAZINE 20 MG/ML VIAL SLOW IVP PRN (06:06)
--- NOTE | 2017-10-12 09:11 | RAD ---
PORTABLE CHEST 1 VIEW: Date: 10/12/17 Time: 0250 hours HISTORY: Abnormal lab results, low sodium and elevated WBCs. FINDINGS: Comparison made with exam of 05/04/17. There are changes of median sternotomy. The heart size is borderline. The aorta is tortuous. The lung s are expanded without focal areas of consolidation, pneumothorax, clint pulmonary edema, or pleural effusions. IMPRESSION: No radiographic evidence of acute cardiopulmonary process. POS: OFF
[2017-10-12] MEDS: Dronedarone HCl 400 MG TAB PO SCH (16:49)
--- NOTE | 2017-10-12 18:11 | PDOC.PN ---
- Subjective Encounter Start Date: 10/12/17 Encounter Start Time: 18:09 patient not feeling a whole lot different than yesterday,. still weak. no nausea or vomiting. Na came up. - Objective Resuscitation Status: Resuscitation Status FULL:Full Resuscitation MAR Reviewed: Yes Vital Signs & Weight: Vital Signs (12 hours) Temp Pulse Resp BP Pulse Ox 10/12/17 16:00 98.6 F 69 16 161/73 H 97 10/12/17 11:00 97.7 F 70 16 160/66 H 96 10/12/17 08:00 97.7 F 62 18 Weight Weight 153 lb 14.122 oz I&O: 10/11/17 10/12/17 10/13/17 06:59 06:59 06:59 Intake Total 420 Balance 420 Result Diagrams: 10/12/17 04:17 10/12/17 04:17 Additional Labs: Accuchecks 10/12/17 10/12/17 10/12/17 16:42 10:57 06:03 POC Glucose 113 H 128 H 99 Phys Exam - Physical Examination HEENT: moist MMs, sclera anicteric Neck: no nodes, no JVD, supple Respiratory: no wheezing, no rales, no rhonchi Cardiovascular: RRR, no significant murmur, no rub Gastrointestinal: soft, non-tender, no distention Musculoskeletal: no edema, pulses present Neurological: non-focal, normal sensation Dx/Plan (1) CAD (coronary artery disease) Code(s): I25.10 - ATHSCL HEART DISEASE OF [place] CORONARY ARTERY W/O ANG PCTRS Comment: stable, cont asa, metoprolol. (2) Chronic anticoagulation Code(s): Z79.01 - MCC (CURRENT) USE OF ANTICOAGULANTS Status: Chronic Comment: continue eliquis for a-fib (3) Hyperlipidemia Code(s): E78.5 - HYPERLIPIDEMIA, UNSPECIFIED Status: Chronic Qualifiers: Comment: continue pravastatin (4) Hyponatremia Code(s): E87.1 - HYPO-OSMOLALITY AND HYPONATREMIA Status: Chronic Comment: improved with NS hydration. however patient with no obvious cause of dehydration. could be from overcorrection of hyperthyroidism as TSH is now high. will d/c NS today and rechck BMP in am to see if stable (5) Paroxysmal A-fib Code(s): I48.0 - PAROXYSMAL ATRIAL FIBRILLATION Status: Chronic Comment: rate controlled. cont eliquis , amiodarone (6) Hyperthyroidism Code(s): E05.90 - THYROTOXICOSIS, UNSP WITHOUT THYROTOXIC CRISIS OR STORM Status: Acute Comment: patient with increased TSH and sxs of fatgiue. will d/ c methimazole patient follows with boiler fireman in [facility] . attempted to call office [phone]. answering service with no answer. guillermo t4 WNL. however suspect hyperthyroid overcorected and patient is now hypothyroid. - Plan cont current plan of care, PT/OT * . will ambulate with PT/OT. could be candidate for inpatient rehab -will rechck labs in am with d/c of IVF. -hold tapazole, patient likely now hypothroid. will attempt to reach out tomorow to patients boiler fireman. left message for them but they did not call back,.
[2017-10-12] MEDS: hydrALAZINE 25 MG TAB PO SCH (20:15)
[2017-10-12] MEDS: Apixaban 5 MG TAB PO SCH (20:15)
[2017-10-12] MEDS ORDERED: Pravastatin Sodium 40 MG TAB PO SCH (21:00)
[2017-10-13] MEDS: hydrALAZINE 20 MG/ML VIAL SLOW IVP PRN (01:34)
[2017-10-13 05:31] LABS: Anion Gap 12 mmol/L (10-20); BUN (Urea Nitrogen) 14 mg/dL (9.8-20.1); Calc. Creatinine Clearance 67 mL/min (70-130); Calcium 9.5 mg/dL (7.8-10.44); Carbon Dioxide 22 mmol/L (23-31); Chloride 99 mmol/L (98-107); Estimated GFR-MDRD 79; Glucose 108 mg/dL (83-110); Potassium 4.1 mmol/L (3.5-5.1); Sodium 129 mmol/L (136-145)
[2017-10-13 05:48] LABS: Eosinophils 6 % (0-10); Hemoglobin 11.7 g/dL (12.0-16.0); Lymphocytes 48 % (21-51); MDiff Complete? YES; Mean Corpuscular HGB CONC 32.6 g/dL (32.0-36.0); Mean Corpuscular Hemoglobin 28.6 pg (27.0-31.0); Mean Corpuscular Volume 87.8 fl (81.0-99.0); Mean Platelet Volume 6.6 fL (7.4-10.4); Monocytes 7 % (0-10); Neutrophil 38 % (42-75); PLT Morphology Comment Appears Adequate; Platelet Count 343 thou/uL (130-400); RBC Distribution Width 15.1 % (11.5-14.5); RBC Morphology Normal; Red Blood Cell (RBC) Count 4.09 mill/uL (4.20-5.40); White Blood Cell (WBC) Count 9.6 thou/uL (4.8-10.8)
[2017-10-13] MEDS ORDERED: metFORMIN XR 500 MG TAB PO SCH (08:00)
[2017-10-13] MEDS ORDERED: Ferrous Sulfate 325 MG TAB PO SCH (08:00)
[2017-10-13] MEDS: Dronedarone HCl 400 MG TAB PO SCH (08:24)
[2017-10-13] MEDS: hydrALAZINE 25 MG TAB PO SCH (08:25)
[2017-10-13] MEDS: Apixaban 5 MG TAB PO SCH (08:26)
[2017-10-13] MEDS ORDERED: EPA PO SCH (09:00)
[2017-10-13] MEDS ORDERED: OMEGA PO SCH (09:00)
[2017-10-13] MEDS ORDERED: Metoprolol Tartrate 25 MG TAB PO SCH (09:00)
[2017-10-13] MEDS ORDERED: Losartan 25 MG TAB PO SCH (09:00)
[2017-10-13] MEDS ORDERED: Methimazole 5 MG TAB PO SCH (09:00)
[2017-10-13] MEDS ORDERED: KRILL OIL PO SCH (09:00)
[2017-10-13] MEDS ORDERED: DHA PO SCH (09:00)
[2017-10-13] MEDS ORDERED: Multivitamin W/ Minerals 1 TAB PO SCH (09:00)
[2017-10-13] MEDS ORDERED: Aspirin 81 mg Enteric Coated Tablet PO SCH (09:00)
[2017-10-13 11:31] LABS: Anion Gap 11 mmol/L (10-20); BUN (Urea Nitrogen) 15 mg/dL (9.8-20.1); Calc. Creatinine Clearance 62 mL/min (70-130); Calcium 9.5 mg/dL (7.8-10.44); Carbon Dioxide 23 mmol/L (23-31); Chloride 97 mmol/L (98-107); Estimated GFR-MDRD 72; Glucose 151 mg/dL (83-110); Potassium 4.5 mmol/L (3.5-5.1); Sodium 126 mmol/L (136-145)
[2017-10-13 14:57] VITALS: BP 162/71; TEMP 98.6
== END 2017-10-13 14:53 | DRG 641 ==
LOC: ERS 17:50 → T4-B 22:50
PROVIDERS: ADMIT Internal Medicine; ATTEND Internal Medicine
DX: E87.1 Hypo-osmolality and hyponatremia (principal); E11.9 Type 2 diabetes mellitus without complications; F32.9 Major depressive disorder, single episode, unspecified; F41.9 Anxiety disorder, unspecified; E78.5 Hyperlipidemia, unspecified; I25.10 Atherosclerotic heart disease of native coronary artery without angina pectoris; J45.909 Unspecified asthma, uncomplicated; Z96.642 Presence of left artificial hip joint; Z95.1 Presence of aortocoronary bypass graft; Z91.041 Radiographic dye allergy status; Z79.899 Other long term (current) drug therapy; Z79.84 Long term (current) use of oral hypoglycemic drugs; Z79.01 Long term (current) use of anticoagulants; I48.0 Paroxysmal atrial fibrillation; R53.1 Weakness; D72.829 Elevated white blood cell count, unspecified
CPT/HCPCS: 36415; 36416; 71045; 73521; 80048; 80053; 81003; 81015; 82436; 82570; 83036; 83930; 83935; 84133; 84300; 84439; 84443; 84481; 85007; 85025; 85027; 87077; 87086; 87186; 96360; 96361; G8978-GP-CK; G8979-GP-CI; G8987-GO-CJ; G8988-GO-CI; J0360

== ENCOUNTER 2017-11-02 12:06 | Outpatient (CLI) | payer MEDICARE | END 2017-11-02 12:07 | disposition home or self-care (01) | LOC: BICMAMMO 12:06 | PROVIDERS: ATTEND Internal Medicine Nephrology | DX: Z12.31 Encounter for screening mammogram for malignant neoplasm of breast (principal); E87.5 Hyperkalemia; R92.1 Mammographic calcification found on diagnostic imaging of breast; N28.89 Other specified disorders of kidney and ureter; Z80.3 Family history of malignant neoplasm of breast | CPT/HCPCS: 76770; 77063; 77067 ==

== ENCOUNTER 2017-11-12 17:41 | Emergency (ER) | payer MEDICARE ==
--- NOTE | 2017-11-12 21:15 | CT ---
HEAD CT WITHOUT CONTRAST: HISTORY: Mechanical fall at home. COMPARISON: 03/22/2015 TECHNIQUE: A noncontrast head CT is performed from the skull base to the skull vertex. FINDINGS: No parenchymal hemorrhage. No extraaxial hematoma. No midline shift. The basilar cisterns are amos nt. Age appropriate atrophy. Cortical nance white matter differentiation is preserved. The ventricles and sulci are patent and symmetric. Chronic small vessel ischemic changes of the white matter are noted. The calvarium is intact. Adequate aeration of the mastoid air cells. There is evidence of a right e thmoidectomy. There is mucosal thickening of the residual ethmoid air cells and the right maxillary sinus. Chronic changes of the right maxillary sinus is noted. Cavernous carotid atherosclerosis is identified. IMPRESSION: 1. No intracranial posttraumatic sequelae. 2. Chronic changes involving the right paranasal sinuses. POS: [facility]
--- NOTE | 2017-11-12 21:20 | CT ---
CT CERVICAL SPINE WITHOUT CONTRAST: HISTORY: Mechanical fall at home. COMPARISON: None. TECHNIQUE: CT cervical spine is performed without contrast. Reformatted images are submitted for interpretation . FINDINGS: There is no craniocervical dissociation. There is appropriate alignment of the lateral masses of C1 and C2, as well as the intraarticular facets. The odontoid process is intact. Grade 1 anterolisthesis of C5 upon C6 and C6 upon C7 is felt to be due to degenerative change. The c urrent study is not tailored to assess for ligamentous injury. There is no prevertebral soft tissue swelling. The visualized soft tissue neck structures are unremarkable. There is atherosclerosis of both carotid arteries. The upper mediastinum and lung apices are unremarkable. Limited evaluation of the contents of the central spinal canal and neural foramina. No high grade ce ntral canal stenosis. Varying degrees of foraminal stenosis. Cervical spine vertebral body heights are maintained. There is no cervical spine fracture. IMPRESSION: 1. No cervical spine fracture. 2. Degenerative changes of the cervical spine with varying degrees of central canal stenosis and for aminal narrowing. 3. Spondylolisthesis presumed to be on the basis of degenerative change. POS: [facility]
== END 2017-11-12 20:43 | disposition home or self-care (01) ==
LOC: ERS 17:41
DX: S00.03XA Contusion of scalp, initial encounter (principal); E05.90 Thyrotoxicosis, unspecified without thyrotoxic crisis or storm; E11.9 Type 2 diabetes mellitus without complications; E78.5 Hyperlipidemia, unspecified; I10 Essential (primary) hypertension; J45.909 Unspecified asthma, uncomplicated; F41.9 Anxiety disorder, unspecified; F32.9 Major depressive disorder, single episode, unspecified; Z79.899 Other long term (current) drug therapy; Z79.82 Long term (current) use of aspirin; Z79.84 Long term (current) use of oral hypoglycemic drugs; W19.XXXA Unspecified fall, initial encounter; Y92.009 Unspecified place in unspecified non-institutional (private) residence as the place of occurrence of the external cause
CPT/HCPCS: 70450; 72125; 93005

== ENCOUNTER 2017-12-31 19:30 | Outpatient (CLI) | payer MEDICARE | END 2017-12-31 19:31 | disposition home or self-care (01) | LOC: SLEEPLAB 19:30 | PROVIDERS: ATTEND Nurse Practitioner Family | DX: G47.33 Obstructive sleep apnea (adult) (pediatric) (principal); R06.83 Snoring; R53.83 Other fatigue; E66.9 Obesity, unspecified; F32.9 Major depressive disorder, single episode, unspecified; I11.0 Hypertensive heart disease with heart failure; I50.9 Heart failure, unspecified; E11.9 Type 2 diabetes mellitus without complications; I21.9 Acute myocardial infarction, unspecified; G47.61 Periodic limb movement disorder; G47.10 Hypersomnia, unspecified; Z68.30 Body mass index [BMI] 30.0-30.9, adult | CPT/HCPCS: 95810 ==

== ENCOUNTER 2018-06-24 16:36 | Observation (INO) | payer MEDICARE, OTHER ==
[2018-06-24] MEDS ORDERED: Pantoprazole 40 MG VIAL ONE ×2 (17:05→17:45)
[2018-06-24 17:25] LABS: #Basophils 0.1 thou/uL (0.0-0.2); #Eosinphils 0.1 thou/uL (0.0-0.7); #Lymphocytes 4.2 thou/uL (1.20-3.40); #Monocytes 0.9 thou/uL (0.11-0.59); #Neutrophils 7.9 thou/uL (1.40-6.50); %Basophils 0.9 % (0.0-1.0); %Eosinophils 0.8 % (0.0-10.0); %Lymphocytes 31.4 % (21.0-51.0); %Monocytes 7.1 % (0.0-10.0); %Neutrophils 59.8 % (42.0-75.0); Hemoglobin 10.5 g/dL (12.0-16.0); Mean Corpuscular HGB CONC 33.5 g/dL (32.0-36.0); Mean Corpuscular Hemoglobin 29.9 pg (27.0-31.0); Mean Corpuscular Volume 89.3 fL (78.0-98.0); Mean Platelet Volume 7.3 fL (7.4-10.4); Platelet Count 307 thou/uL (130-400); RBC Distribution Width 12.8 % (11.5-14.5); White Blood Cell (WBC) Count 13.3 thou/uL (4.8-10.8)
[2018-06-24 17:28] LABS: INR-International Normal Ratio 1.2; Prothrombin Time 15.7 SEC (12.0-14.7)
[2018-06-24 17:29] LABS: PTT 34.3 SEC (22.9-36.1)
[2018-06-24] MEDS ORDERED: Ondansetron PF 4 MG/2 ML Vial ONE (17:34)
[2018-06-24 17:38] LABS: AST (SGOT) 15 U/L (5-34); Albumin 3.7 g/dL (3.4-4.8); Alkaline Phosphatase 38 U/L (40-150); Anion Gap 18 mmol/L (10-20); BUN (Urea Nitrogen) 68 mg/dL (9.8-20.1); Bilirubin, Total 0.3 mg/dL (0.2-1.2); Calc. Creatinine Clearance 0 mL/min (70-130); Carbon Dioxide 20 mmol/L (23-31); Chloride 103 mmol/L (98-107); Estimated GFR-MDRD 61; Globulin 2.5 g/dL (2.4-3.5); Glucose 207 mg/dL (83-110); Potassium 4.7 mmol/L (3.5-5.1); Protein, Total 6.2 g/dL (6.0-8.3); Sodium 136 mmol/L (136-145)
[2018-06-24 17:48] LABS: ALT (SGPT) 15 U/L (8-55)
--- NOTE | 2018-06-24 18:29 | RAD ---
CHEST TWO VIEWS: Comparison: 05-09-17 History: Hemoptysis FINDINGS: There appears to be prominent nipple shadowing projecting over the right lung base. Old left sided ri b fractures. No airspace consolidation, pneumothorax or effusions. Scarring in the left lower lobe. M ultiple midline sternotomy wires. IMPRESSION: Chronic findings. No acute intrathoracic abnormality. POS: [facility]
[2018-06-24] MEDS ORDERED: Sodium Chloride 0.9% 1,000 ML IV SCH (20:06)
[2018-06-24] MEDS ORDERED: Ondansetron ODT 4 MG TAB SL PRN (20:06)
[2018-06-24] MEDS ORDERED: Ondansetron PF 4 MG/2 ML Vial IVP PRN (20:06)
[2018-06-24] MEDS ORDERED: Pantoprazole 80 MG in Sodium Chloride 0.9% 100 ML IVP SCH (20:15)
--- NOTE | 2018-06-24 23:10 | CON ---
DATE OF CONSULTATION: 06/24/2018 CHIEF COMPLAINT: Anemia and vomited blood. HISTORY OF PRESENT ILLNESS: Ms. Guillen is an 82-year-old woman who woke up this morning and took her usual medicines, but had around 3 or 4 episodes of vomiting coffee-ground material. She passed 2 black stools. She came to the emergency room, brought by her family for further care. She has had no abdominal pain with this. No chest pain or shortness of breath. She is not taking any NSAIDs, but she takes an aspirin 81 mg daily. She has been on Eliquis for a history of atrial fibrillation. Her last dose of Eliquis, she did take this morning. PAST MEDICAL HISTORY: Hyperthyroidism, diabetes, hyperlipidemia, hypertension, asthma, atrial fibrillation, and coronary artery disease. PAST SURGICAL HISTORY: Tonsillectomy, hip surgeries, hysterectomy, cataract surgery, bladder suspension, sinus surgery, coronary artery bypass graft. HABITS: No alcohol, tobacco, or drugs. FAMILY HISTORY: Negative for GI malignancy. ALLERGIES: IODINATED CONTRAST. MEDICATIONS: Prior to admission, 1. Metformin. 2. Aspirin. 3. Amlodipine. 4. Multaq. 5. Hydralazine. 6. Eliquis. 7. Metoprolol. 8. Pravastatin. 9. Sertraline. 10. Iron. 11. Krill oil. 12. Cranberry. REVIEW OF SYSTEMS: Negative x10 systems reviewed except as stated in the history of present illness. PHYSICAL EXAMINATION: VITAL SIGNS: From the emergency room, blood pressure 141/74, temperature 97.8, pulse 97. GENERAL: She is in no acute distress. Alert and oriented x3. HEENT: Eyes have no scleral icterus. Oropharynx is clear without lesions. No cervical or supraclavicular lymphadenopathy. LUNGS: Clear to auscultation bilaterally. HEART: Regular rate and rhythm without murmur. ABDOMEN: Soft, nontender, and nondistended. Bowel sounds are present. EXTREMITIES: No lower extremity edema. RECTAL: Reveals melenic stool in the rectal vault. LABORATORY DATA: Hemoglobin is 10.5. Back on 06/19/2018, hemoglobin was 14.5. Her white blood cell count is 13.3, platelets 307. INR 1.2. Creatinine 0.88, BUN 68, bilirubin 0.3, AST 15, ALT 15, and alkaline phosphatase 38. Albumin 3.7, TSH 1.4. IMPRESSION: 1. Upper gastrointestinal bleed with coffee-grounds emesis and melena. She is on Eliquis with her last dose having been this morning. She takes aspirin daily. She most likely has peptic ulcer with bleed. Her BUN is elevated consistent with this. Her hemoglobin has shown a significant drop from 14.5 on the June 19 to 10.5 today. 2. Anemia of acute blood loss. 3. History of atrial fibrillation, on anticoagulation with Eliquis. 4. Coronary artery disease. 5. Diabetes. RECOMMENDATIONS: 1. Proton pump inhibitor drip. 2. Eliquis has been held. 3. EGD tomorrow with upper endoscopy tomorrow. Job ID: [id number]
[2018-06-24 23:23] LABS: Hemoglobin 8.2 g/dL (12.0-16.0)
[2018-06-24 23:25] VITALS: BMI 30.2
--- NOTE | 2018-06-25 01:36 | HP ---
CHIEF COMPLAINT: GI bleed, hematemesis, started today. HISTORY OF PRESENT ILLNESS: She is an 82-year-old woman, with history of hypertension, atrial fibrillation, bypass, presented to the [place] ER because of hematemesis. She had 3 episodes of hematemesis, dark-colored blood mixed with vomitus, came out 3 times, quantity was large enough to be worried and family brought in the ER and over there her hemoglobin dropped from 14.7 to 10.2 and started on Protonix drip in the ER and she was transferred over here. When she was transferred, her pulse 73, blood pressure 184/48, respiratory rate 20, temperature 98.4. PAST MEDICAL HISTORY: As mentioned already, history of bypass, atrial fibrillation. MEDICATIONS: Medicines taking home; 1. Eliquis. 2. Aspirin. 3. Multaq. 4. Salt tablet. SOCIAL HISTORY: Denies alcohol or drug use. FAMILY HISTORY: Noncontributory. REVIEW OF SYSTEMS: CONSTITUTIONAL: She denies any fever, any malaise. EYES: She denies any photophobia and any discharge from the eyes. EARS: No any epistaxis, no any pain. CARDIOVASCULAR: No chest pain, no shortness of breath. RESPIRATION: No cough, no shortness of breath, no wheezing. GI: She does have hematemesis. No melena, no diarrhea, no constipation. MUSCULOSKELETAL: No joint pain. SKIN: No rash. NEUROLOGIC: No focal deficits. HEME/LYMPHATIC: No abnormal clotting. No easy bruising. PHYSICAL EXAMINATION: GENERAL: She is an elderly woman, lying in bed, not in any distress. VITAL SIGNS: Pulse 84, blood pressure 160/70, respiratory rate 20, temperature 98.4. HEENT: Head is atraumatic and normocephalic. Pupils are round and reactive. Extraocular muscles intact. Ear, nose and throat, normal. Tongue, mucosa moist. NECK: Supple. No JVD. No thyromegaly. CHEST: Has normal vesicular breathing with no added sound. No crackles, no wheezing. CVS: S1 is audible. No S3 or S4 ABDOMEN: Soft, bowel sounds audible. No epigastric tenderness. No guarding, no rigidity. EXTREMITIES: No pedal edema, no cyanosis or clubbing. NEUROLOGIC: Alert and oriented x3. No focal deficits. SKIN: Dry. No rash. : Deferred. LABORATORY DATA: Labs show WBC 13.3, hemoglobin 10.5, hematocrit 31.3, platelets 307. Chemistry: Sodium 136, potassium 4.7, chloride 103, carbon dioxide 20, anion gap 18, BUN 68, creatinine 0.8, glucose 207, AST 15, ALT 15, albumin 3.7, globulin 3.4, INR 1.2. ASSESSMENT AND PLAN: 1. Hematemesis, upper gastrointestinal bleed. 2. Acute blood loss anemia. 3. Hyperglycemia. 4. History of coronary artery disease status post bypass. 5. Atrial fibrillation. PLAN: 1. NPO, IV Protonix drip, possible upper GI bleed, hematemesis, rule out peptic ulcer disease, AV malformation. GI [facility] consultant. Serial hemoglobins. 2. Coronary artery disease, status post bypass. Hold aspirin. 3. Atrial fibrillation, on Eliquis. We will hold Eliquis. 4. Acute blood loss anemia secondary to hematemesis. Continue to monitor. 5. DVT prophylaxis with SCDs. 6. Full code. Job ID: [id number]
[2018-06-25] MEDS: Sodium Chloride 0.9% 1,000 ML IV SCH ×2 (03:46→14:17)
[2018-06-25 05:11] LABS: #Eosinphils 0.1 thou/uL (0.0-0.7); #Monocytes 1.2 thou/uL (0.11-0.59); #Neutrophils 4.9 thou/uL (1.40-6.50); %Basophils 0.2 % (0.0-1.0); %Eosinophils 1.1 % (0.0-10.0); %Monocytes 11.8 % (0.0-10.0); %Neutrophils 47.9 % (42.0-75.0); Hemoglobin 8.3 g/dL (12.0-16.0); Mean Corpuscular HGB CONC 33.2 g/dL (32.0-36.0); Mean Corpuscular Hemoglobin 30.5 pg (27.0-31.0); Mean Corpuscular Volume 91.7 fL (78.0-98.0); Mean Platelet Volume 7.7 fL (7.4-10.4); Platelet Count 256 thou/uL (130-400); RBC Distribution Width 12.8 % (11.5-14.5); Red Blood Cell (RBC) Count 2.72 mill/uL (4.20-5.40); White Blood Cell (WBC) Count 10.2 thou/uL (4.8-10.8)
[2018-06-25 05:40] LABS: Anion Gap 11 mmol/L (10-20); BUN (Urea Nitrogen) 52 mg/dL (9.8-20.1); Calc. Creatinine Clearance 65 mL/min (70-130); Calcium 8.7 mg/dL (7.8-10.44); Carbon Dioxide 22 mmol/L (23-31); Chloride 109 mmol/L (98-107); Estimated GFR-MDRD 74; Glucose 149 mg/dL (83-110); Potassium 4.1 mmol/L (3.5-5.1); Sodium 138 mmol/L (136-145)
[2018-06-25] MEDS ORDERED: Ondansetron HCl/PF 4 MG/2 ML Vial IVP PRN (10:23)
[2018-06-25] MEDS ORDERED: Promethazine HCl 25 MG/ML VIAL SLOW IVP PRN (10:23)
[2018-06-25] MEDS ORDERED: Promethazine HCl 25 MG/ML VIAL IM PRN (10:23)
--- NOTE | 2018-06-25 11:06 | OP ---
DATE OF PROCEDURE: 06/25/2018 PROCEDURE: Esophagogastroduodenoscopy. PREOPERATIVE DIAGNOSES: 1. Gastrointestinal bleed. 2. Anemia of acute blood loss. Her last dose of Eliquis was yesterday morning. DESCRIPTION OF PROCEDURE: Informed consent was obtained from the patient. She was sedated with total intravenous anesthesia. The bite block was placed and the endoscope was advanced easily to the second portion of the duodenum and retroflexion was performed in the stomach. The esophagus was normal. The GE junction was normal. The stomach had a 1-cm ulcer in the antrum with a flat, pale pink spot in the center, that appears to be the likely prior bleeding source. There was also a second 4-mm ulcer in the antrum. The remainder of the gastric mucosa was normal. The pylorus and first and second portions of the duodenum were normal. IMPRESSION: 1. A 1 cm gastric antrum ulcer with a single flat pale pink spot in the center of the ulcer, appears to be very low risk for rebleeding. This was left alone. 2. A 4-mm antral ulcer. 3. Otherwise normal esophagogastroduodenoscopy. RECOMMENDATIONS: 1. Check H pylori stool antigen. 2. Proton pump inhibitor daily. 3. Okay to restart anticoagulation in 1 week. 4. Advance diet. 5. Anticipate discharge home today. I will sign off. Followup is scheduled in our office with KRISTAN Simmons with Dr. Reyes, scheduled on 07/09/2018 at 11 o'clock in a.m. Job ID: [id number]
[2018-06-25 16:41] VITALS: BP 146/69; TEMP 98.3
[2018-06-25] MEDS ORDERED: Lidocaine 1% PF 5 ML VIAL ONE (16:47)
[2018-06-25] MEDS ORDERED: PROPOFOL 200 MG/20 ML VIAL ONE (16:47)
--- NOTE | 2018-06-25 23:42 | DIS ---
DATE OF ADMISSION: 06/24/2018 DATE OF DISCHARGE: 06/25/2018 PRIMARY CARE PROVIDER: Anny Shankar, CHIEF METER READER-C DISCHARGE DIAGNOSES: 1. Acute blood loss anemia. 2. Upper gastrointestinal bleed. 3. Gastric ulcer. CONDITION OF PATIENT ON THE DAY OF DISCHARGE: Stable. I assessed Ms. Guillen on the day of discharge. She denies any chest pain or shortness of breath. Vital signs are stable. S1 and S2 are heard, regular. Lungs are clear to auscultation bilaterally. DISCHARGE MEDICATIONS: She is being started on Protonix 40 mg daily. She has been advised to resume Eliquis after 1 week. Otherwise, no change was made to her pre-admission home medications, which include; 1. Norvasc 10 mg daily. 2. Vitamin D3 5000 units daily. 3. Cranberry 500 mg daily. 4. Multaq 400 mg two times a day. 5. Ferrous sulfate 325 mg daily. 6. Hydralazine 25 mg three times a day. 7. [place]-3 Krill oil Softgel 1 capsule daily. 8. Metformin 500 mg two times a day. 9. Metoprolol tartrate 12.5 mg two times a day. 10. Mu multivitamins for women 1 tablet daily. 11. Pravastatin 40 mg at bedtime. 12. Zoloft 50 mg at bedtime. 13. Sodium chloride 1 g daily. 14. Aspirin 81 mg daily. CONSULTATIONS DURING THIS HOSPITALIZATION: Gastroenterology, Dr. Fredy Stoddard. HOSPITAL COURSE: Ms. Guillen is a pleasant 82-year-old lady who was admitted to [facility] on 06/24/2018 for black stools. Please refer to Dr. Pressley's history and physical note dated 06/24/2018 for further details. She was seen by Gastroenterology Service. She underwent EGD on 06/25/2018. She was found to have 1 cm gastric antrum ulcer with a single flat pale pink spot in the center of the ulcer, appeared to be very low risk for rebleeding, a 4 mm antral ulcer, otherwise normal EGD. She has been advised to resume Eliquis in 1 week. She has been cleared for discharge. She has been started on daily PPI. She has followup appointment on 07/09/2018 at 11:00 a.m. with Gastroenterology Service. She has been advised to avoid nonsteroidal anti-inflammatory agents. She has also been advised to her blood work rechecked after resuming Eliquis. LABORATORY DATA: On the day of discharge, she has white count of 10,200, hemoglobin 8.3, and platelet count 256,000. Sodium 138, potassium 4.1, and creatinine 0.75. DISCHARGE DESTINATION: Home. Many thanks for allowing me to participate in your patient's care. Please feel free to contact me with any questions or concerns. Job ID: [id number]
== END 2018-06-25 16:49 | disposition home or self-care (01) ==
LOC: SCSER 16:36 → 2SW 19:26
PROVIDERS: ADMIT Internal Medicine; ATTEND Internal Medicine
PROC: 0DJ08ZZ Inspection of Upper Intestinal Tract, Via Natural or Artificial Opening Endoscopic (ICD-10-PCS; principal; 2018-06-25)
DX: K25.4 Chronic or unspecified gastric ulcer with hemorrhage (principal); D62 Acute posthemorrhagic anemia; I48.91 Unspecified atrial fibrillation; I25.10 Atherosclerotic heart disease of native coronary artery without angina pectoris; E11.9 Type 2 diabetes mellitus without complications; J45.909 Unspecified asthma, uncomplicated; Z79.01 Long term (current) use of anticoagulants; Z79.82 Long term (current) use of aspirin; Z79.84 Long term (current) use of oral hypoglycemic drugs; Z79.899 Other long term (current) drug therapy; Z88.7 Allergy status to serum and vaccine; Z91.041 Radiographic dye allergy status; Z95.1 Presence of aortocoronary bypass graft
CPT/HCPCS: 43235; 71046; 80048; 80053; 82962 ×2; 85014; 85018; 85025 ×2; 85610; 85730; 86850; 86900; 86901; 93005; 96365; 96366 ×2; 96375; 96376; 99285; G0378 ×2; 36415; 36416; C9113; J2001; J2405; J2704; J7050

== ENCOUNTER 2018-06-28 09:27 | Observation (INO) | payer MEDICARE, OTHER ==
[2018-06-28 10:00] LABS: #Basophils 0.1 thou/uL (0.0-0.2); #Eosinphils 0.3 thou/uL (0.0-0.7); #Lymphocytes 2.9 thou/uL (1.20-3.40); #Monocytes 0.8 thou/uL (0.11-0.59); #Neutrophils 4.6 thou/uL (1.40-6.50); %Basophils 0.6 % (0.0-1.0); %Eosinophils 3.4 % (0.0-10.0); %Lymphocytes 33.6 % (21.0-51.0); %Monocytes 9.6 % (0.0-10.0); %Neutrophils 52.8 % (42.0-75.0); Hemoglobin 7.8 g/dL (12.0-16.0); Mean Corpuscular HGB CONC 32.4 g/dL (32.0-36.0); Mean Corpuscular Volume 92.7 fL (78.0-98.0); Mean Platelet Volume 7.3 fL (7.4-10.4); Platelet Count 320 thou/uL (130-400); RBC Distribution Width 13.8 % (11.5-14.5); White Blood Cell (WBC) Count 8.7 thou/uL (4.8-10.8)
[2018-06-28 10:04] LABS: PTT 30.2 SEC (22.9-36.1); Prothrombin Time 13.1 SEC (12.0-14.7)
[2018-06-28 10:22] LABS: ALT (SGPT) 13 U/L (8-55); AST (SGOT) 17 U/L (5-34); Albumin 3.8 g/dL (3.4-4.8); Alkaline Phosphatase 41 U/L (40-150); Anion Gap 13 mmol/L (10-20); BUN (Urea Nitrogen) 23 mg/dL (9.8-20.1); Bilirubin, Total 0.4 mg/dL (0.2-1.2); Calc. Creatinine Clearance 0 mL/min (70-130); Calcium 9.1 mg/dL (7.8-10.44); Carbon Dioxide 23 mmol/L (23-31); Chloride 103 mmol/L (98-107); Estimated GFR-MDRD 59; Globulin 2.4 g/dL (2.4-3.5); Glucose 213 mg/dL (83-110); Potassium 3.9 mmol/L (3.5-5.1); Protein, Total 6.2 g/dL (6.0-8.3); Sodium 135 mmol/L (136-145)
[2018-06-28] MEDS ORDERED: Acetaminophen 325 MG TAB PO PRN (11:56)
[2018-06-28] MEDS ORDERED: Guaifenesin DM 100-10/5 ML UDCUP PO PRN (11:56)
[2018-06-28] MEDS ORDERED: Dextrose 50% Abboject 50 ML SYRINGE SLOW IVP PRN (11:56)
[2018-06-28] MEDS ORDERED: Dextrose 5% in Water 1,000 ML IV PRN (11:56)
[2018-06-28] MEDS ORDERED: HumaLOG 300 UNITS/3 ML VIAL SC PRN ×2 (11:56)
[2018-06-28] MEDS ORDERED: Sodium Chloride 0.9% (PF) 10 ML VIAL FS PRN (12:40)
--- NOTE | 2018-06-28 13:30 | HP ---
REASON FOR ADMISSION: Anemia with recent history of GI bleed and peptic ulcer. HISTORY OF PRESENTING ILLNESS: The patient gives history of having had recent upper endoscopy and was found to have had antral ulcer. The patient complains of having tarry, sticky stool from the time she left hospital. She had given her blood work with home health on Monday and her primary care physician called her to go to the hospital. Her hemoglobin was 6.8 g or so that was drawn on Monday. Her discharge hemoglobin and hematocrit from here was 8.3 and 25. She had an H and H of 14 and 45 on the of this month. Currently, has no complaints of abdominal pain, nausea, or vomiting. No complaints of chest pain, palpitations, PND, or orthopnea. PAST MEDICAL AND SURGICAL HISTORY: History of upper endoscopy done on [address] Fredy Stoddard revealed 1 cm gastric antral ulcer with a single flat pale pink spot in the center of the ulcer, which appeared to be low risk for rebleeding. This was left alone. There was also an additional 4 mm antral ulcer seen. Diabetes mellitus type 2, dyslipidemia, chronic atrial fibrillation, tonsillectomy, bilateral hip replacement, hysterectomy, cataract surgery, bladder suspension surgery, CABG for 4 vessel disease, and sinus surgery. CURRENT MEDICATIONS: 1. Norvasc 10 mg daily. 2. Vitamin D3 5000 units p.o. daily. 3. Multaq 400 mg twice daily. 4. Ferrous sulfate 325 mg daily. 5. Hydralazine 25 mg 3 times daily. 6. Krill oil one capsule daily. 7. Metformin extended release 500 mg twice daily. 8. Metoprolol 12.5 mg twice daily. 9. Pravastatin 40 mg p.o. nightly. 10. Zoloft 50 mg p.o. nightly. 11. Sodium chloride 1 g daily. 12. Aspirin 81 mg daily. 13. Protonix 40 mg daily. ALLERGIES: ALLERGIC TO IODINE AND PNEUMOCOCCAL VACCINE. PERSONAL HISTORY: Does not abuse alcohol or drugs. The patient normally uses a wheelchair, but transfers by herself. She fixes her breakfast and if there is no family in the house, she uses frozen foods for dinner. She stays with her son. FAMILY HISTORY: Her mother at the age of 92 years. She has had stroke. Father at the age of 78 years. He has had history of polio and sustained hip fracture at the end of his life and did not really recover well after that. CODE STATUS: DNAR. Discussed with the patient at bedside. Power of disability attorney is her son, Mr. Frausto. REVIEW OF SYSTEMS: REVIEW OF SYSTEMS: CONSTITUTIONAL: Negative for weight loss or gain, ability to conduct usual activities. SKIN: Negative for rash, itching. EYES: Negative for double vision, pain. ENT/MOUTH: Negative for nose bleeding, neck stiffness, pain, tenderness. CARDIOVASCULAR: Negative for palpitations, dyspnea on exertion, orthopnea. RESPIRATORY: Negative for shortness of breath, wheezing, cough, hemoptysis, fever or night sweats. GASTROINTESTINAL: Negative for poor appetite, abdominal pain, heartburn, nausea , vomiting, constipation, or diarrhea. GENITOURINARY: Negative for urgency, frequency, dysuria, nocturia. MUSCULOSKELETAL: Negative for pain, swelling. NEUROLOGIC/PSYCHIATRIC: Negative for anxiety, depression. ALLERGY/IMMUNOLOGIC: Negative for skin rash, bleeding tendency. PHYSICAL EXAMINATION: GENERAL: The patient is an 82-year-old female who is currently not in any acute distress. VITAL SIGNS: Blood pressure 136/64, pulse 62 per minute, respiratory rate 18 per minute, temperature 97.3 degrees Fahrenheit, and saturating 97% on room air. NECK: Supple. No elevated JVD. HEENT: Eyes; extraocular muscles intact. Pupils reacting to light. Oral cavity, mucous membranes are moist. There is pallor plus. No exudates or congestion. CARDIOVASCULAR: S1 and S2 heard. Regular rhythm. RESPIRATORY SYSTEM: Air entry 1+ bilateral. No rales or rhonchi. ABDOMEN: Soft. Bowel sounds heard. No tenderness, rigidity, or guarding. EXTREMITIES: No peripheral edema or calf tenderness. VASCULAR: Peripheral pulses 1+ bilateral. No ischemic ulcerations or gangrene. CENTRAL NERVOUS SYSTEM: No gross focal deficits noted. The patient is moving all 4 extremities. PSYCHIATRIC: The patient's mood is euthymic. No hallucinations or delusions. LABORATORY DATA: H and H 7.8 and 24, platelet count 320, MCV is 92 with white count of 8.7. PT, INR, and PTT within normal limits. Electrolytes are stable. BUN 23, creatinine 0.9 serum glucose 213. Liver enzymes within normal limits. Albumin is 3.8. CLINICAL IMPRESSION AND PLAN: The patient will be admitted to the telemetry under observation for possible rebleed. We will obtain an H and H q.[address] Fredy Stoddard has been consulted from ER. We will place on Protonix 40 mg IV q.12 hourly. She will be on clear liquid diet. Likely, the patient will have re-endoscopy done in the morning. She has not started her Eliquis so far, but has started taking aspirin at home after her recent discharge. We will continue all her home medication including Multaq, Lopressor, hydralazine, Pravachol, sertraline , and multivitamin for now. Metformin, losartan, and aspirin will be held for now. We will continue to closely monitor her on telemetry. Job ID: [id number] [facility]
[2018-06-28 16:03] VITALS: BMI 29.6
[2018-06-28] MEDS: Sodium Chloride 0.9% 1,000 ML IV SCH (16:46)
[2018-06-28] MEDS: Dronedarone HCl 400 MG TAB PO SCH (16:46)
[2018-06-28] MEDS: hydrALAZINE 25 MG TAB PO SCH ×2 (16:47→21:14)
[2018-06-28 18:31] LABS: Hemoglobin 11.4 g/dL (12.0-16.0)
[2018-06-28] MEDS ORDERED: Atorvastatin Calcium 10 MG TAB PO SCH (21:00)
[2018-06-28] MEDS: Metoprolol Tartrate 25 MG TAB PO SCH (21:14)
[2018-06-28] MEDS: Pantoprazole 40 MG VIAL IVP SCH (21:17)
--- NOTE | 2018-06-28 23:40 | CON ---
DATE OF CONSULTATION: HISTORY OF PRESENT ILLNESS: The patient is an 82-year-old female, who was in her normal state of health until last week when she had admission for GI bleed. The patient was seen by Dr. Stoddard and the patient was on Eliquis, which had been held. The patient subsequently underwent endoscopy on 06/25/2018 that showed a 1-cm antral ulcer with a single flat pale pink spot that appeared to be a very low risk for bleeding. She also had a 4-mm antral ulcer. The patient was started back on proton pump inhibitor and went home on 06/25/2018. Discharge medications include ferrous sulfate 325 mg b.i.d. and aspirin 81 mg p.o. daily. There is no mention of her resuming her Eliquis. She returned on 06/28/2018 because her home health nurse had drawn a hemoglobin and it was 6.8. She had a black stool, but is not on iron, and she only had one black stool today. PAST MEDICAL HISTORY: Includes gastric ulcer, diabetes mellitus, hyperlipidemia, atrial fibrillation. PAST SURGICAL HISTORY: Includes coronary artery bypass, bilateral hip replacements, cataract surgery, hysterectomy, sinus surgery. MEDICATIONS: Include 1. Norvasc 10 mg p.o. daily. 2. Vitamin D3 5000 units p.o. daily. 3. Multaq 400 mg p.o. b.i.d. 4. Ferrous sulfate 325 mg b.i.d. 5. Hydralazine 25 mg p.o. t.i.d. 6. Metformin 500 mg p.o. b.i.d. 7. Metoprolol 12.5 mg p.o. daily. 8. Pravastatin 40 mg p.o. daily. 9. Zoloft 50 mg p.o. daily. 10. Aspirin 81 mg p.o. daily. 11. Protonix 40 mg p.o. daily. ALLERGIES: IODINE AND PNEUMOCOCCAL VACCINE. SOCIAL HISTORY: She does not smoke or drink. FAMILY HISTORY: Negative for GI or liver disease. REVIEW OF SYSTEMS: CONSTITUTIONAL: No fever or chills. No weight loss. EYES: No blurred vision or double vision. ENT: No sore throat or earaches. CARDIOVASCULAR: No chest pain or palpitations. PULMONARY: No shortness of breath, cough, or wheezing. SKIN: No rashes. NEUROLOGIC: No numbness or seizure activity. PHYSICAL EXAMINATION: VITAL SIGNS: Show temperature 98.2, pulse 64, respiratory rate 18, blood pressure 156/70. HEENT: Unremarkable. NECK: Supple. CHEST: Clear. CARDIOVASCULAR: Regular rate and rhythm. ABDOMEN: Soft, nontender without organomegaly or masses. Bowel sounds are present, normoactive. RECTAL: Deferred. EXTREMITIES: Normal. NEUROLOGIC: Nonfocal. LABORATORY DATA: Show a hemoglobin 7.8, hematocrit 24.1. PT is 31 with an INR of 1.0. Chemistry shows sodium 135, BUN 23, glucose 213. ASSESSMENT: 1. Anemia secondary to gastrointestinal blood loss-I do not think the patient is actively bleeding. I think this anemia is sales support representative of her previous blood loss from her gastrointestinal bleed during her last hospitalization. 2. Coronary artery disease. 3. Atrial fibrillation-previously on Eliquis, but this has been held. RECOMMENDATIONS: 1. Continue to hold Eliquis. 2. No endoscopy at this time. 3. Continue Protonix, but increase to b.i.d. 4. If the patient's H and H are stable tomorrow, would be okay for discharge. Job ID: [id number]
[2018-06-29 08:10] LABS: Hemoglobin 11.2 g/dL (12.0-16.0)
[2018-06-29 08:30] LABS: ALT (SGPT) 11 U/L (8-55); AST (SGOT) 20 U/L (5-34); Albumin 3.7 g/dL (3.4-4.8); Alkaline Phosphatase 46 U/L (40-150); Anion Gap 14 mmol/L (10-20); BUN (Urea Nitrogen) 11 mg/dL (9.8-20.1); Bilirubin, Total 0.8 mg/dL (0.2-1.2); Calc. Creatinine Clearance 62 mL/min (70-130); Calcium 9.2 mg/dL (7.8-10.44); Carbon Dioxide 22 mmol/L (23-31); Chloride 105 mmol/L (98-107); Estimated GFR-MDRD 72; Globulin 2.5 g/dL (2.4-3.5); Glucose 119 mg/dL (83-110); Potassium 3.8 mmol/L (3.5-5.1); Protein, Total 6.2 g/dL (6.0-8.3); Sodium 137 mmol/L (136-145)
[2018-06-29] MEDS: hydrALAZINE 25 MG TAB PO SCH (08:35)
[2018-06-29] MEDS: Metoprolol Tartrate 25 MG TAB PO SCH (08:35)
[2018-06-29] MEDS: Dronedarone HCl 400 MG TAB PO SCH (08:36)
[2018-06-29] MEDS: Sodium Chloride 0.9% 1,000 ML IV SCH (08:37)
[2018-06-29] MEDS: Pantoprazole 40 MG VIAL IVP SCH (08:38)
[2018-06-29] MEDS ORDERED: Sodium Chloride 1 GM TAB PO SCH (09:00)
[2018-06-29] MEDS ORDERED: Amlodipine 10 MG TAB PO SCH (09:00)
[2018-06-29 11:49] VITALS: TEMP 98.3
[2018-06-29 12:38] LABS: Hemoglobin 10.8 g/dL (12.0-16.0)
--- NOTE | 2018-06-29 13:15 | PRG ---
DATE OF SERVICE: 06/29/2018 SUBJECTIVE: The patient is feeling well. She has not had any bowel movement since she has been here. No bleeding. She got transfused without difficulty. OBJECTIVE: VITAL SIGNS: Temperature 98.3, pulse 60, respiratory rate 16, blood pressure 127/61. CHEST: Clear. CARDIOVASCULAR: Regular rate and rhythm. ABDOMEN: Benign. LABORATORY DATA: Shows a hemoglobin 10.8, hematocrit 31.9. ASSESSMENT: 1. Anemia secondary to gastrointestinal blood loss-this is from the previous hospitalization and does not need to be re-scoped. 2. Coronary artery disease. 3. The patient has been on Eliquis, which has been held. RECOMMENDATIONS: 1. Continue to hold Eliquis at least a week from her previous endoscopy, which means another 3 days. 2. Continue Protonix b.i.d. 3. Stable for discharge from GI standpoint. 4. Advance diet. 5. We will sign off this. Job ID: [id number]
[2018-06-29 15:44] VITALS: BP 132/74
== END 2018-06-29 15:49 | disposition home or self-care (01) ==
LOC: ERS 09:27 → T4-A 11:10
PROVIDERS: ADMIT Internal Medicine; ATTEND Internal Medicine
DX: D50.0 Iron deficiency anemia secondary to blood loss (chronic) (principal); I25.10 Atherosclerotic heart disease of native coronary artery without angina pectoris; I48.2 Chronic atrial fibrillation; E11.9 Type 2 diabetes mellitus without complications; E78.5 Hyperlipidemia, unspecified; K25.9 Gastric ulcer, unspecified as acute or chronic, without hemorrhage or perforation; Z90.89 Acquired absence of other organs; Z90.710 Acquired absence of both cervix and uterus; Z96.643 Presence of artificial hip joint, bilateral; Z95.1 Presence of aortocoronary bypass graft; Z91.041 Radiographic dye allergy status; Z88.7 Allergy status to serum and vaccine; Z79.84 Long term (current) use of oral hypoglycemic drugs; Z79.82 Long term (current) use of aspirin; Z79.899 Other long term (current) drug therapy; Z98.890 Other specified postprocedural states
CPT/HCPCS: 36430; 80053 ×2; 82962 ×2; 85014 ×3; 85018 ×3; 85025; 85610; 85730; 86850; 86900; 86901; 86920; 93005; 96374; 96376; 99285; G0378 ×2; P9016; 36415; 36416; C9113

== ENCOUNTER 2018-08-01 18:57 | Emergency (ER) | payer MEDICARE ==
[2018-08-01 20:16] LABS: #Eosinphils 0.2 thou/uL (0.0-0.7); #Lymphocytes 2.3 thou/uL (1.20-3.40); #Monocytes 1.2 thou/uL (0.11-0.59); #Neutrophils 4.4 thou/uL (1.40-6.50); %Basophils 0.2 % (0.0-1.0); %Lymphocytes 27.9 % (21.0-51.0); %Monocytes 14.8 % (0.0-10.0); %Neutrophils 54.2 % (42.0-75.0); Hemoglobin 11.6 g/dL (12.0-16.0); Mean Corpuscular HGB CONC 32.7 g/dL (32.0-36.0); Mean Corpuscular Hemoglobin 30.6 pg (27.0-31.0); Mean Corpuscular Volume 93.7 fL (78.0-98.0); Platelet Count 311 thou/uL (130-400); RBC Distribution Width 13.4 % (11.5-14.5); Red Blood Cell (RBC) Count 3.77 mill/uL (4.20-5.40); White Blood Cell (WBC) Count 8.2 thou/uL (4.8-10.8)
[2018-08-01 20:38] LABS: ALT (SGPT) 16 U/L (8-55); AST (SGOT) 24 U/L (5-34); Albumin 4.1 g/dL (3.4-4.8); Alkaline Phosphatase 57 U/L (40-150); Anion Gap 13 mmol/L (10-20); BUN (Urea Nitrogen) 19 mg/dL (9.8-20.1); Bilirubin, Total 0.3 mg/dL (0.2-1.2); Calc. Creatinine Clearance 0 mL/min (70-130); Calcium 9.6 mg/dL (7.8-10.44); Carbon Dioxide 25 mmol/L (23-31); Chloride 96 mmol/L (98-107); Estimated GFR-MDRD 62; Glucose 105 mg/dL (83-110); Potassium 3.9 mmol/L (3.5-5.1); Protein, Total 7.1 g/dL (6.0-8.3); Sodium 130 mmol/L (136-145)
--- NOTE | 2018-08-01 20:39 | RAD ---
CHEST ONE VIEW: 08/01/18 HISTORY: Cough. COMPARISON: Radiograph 07/04/18. FINDINGS: There is some linear markings left lung base. No pneumothorax. No effusion. Old right sided rib fract ures. There is calcific tendinosis right rotator cuff. IMPRESSION: Chronic findings. No acute intrathoracic abnormality. POS: [facility]
[2018-08-01 21:37] LABS: INR-International Normal Ratio 1.1; Prothrombin Time 14.6 SEC (12.0-14.7)
[2018-08-01 21:38] LABS: PTT 40.7 SEC (22.9-36.1)
[2018-08-01 21:43] LABS: Bilirubin Negative (Negative); Blood, Urine Negative (Negative); Clarity CLOUDY (Clear); Glucose, Urine (Dipstick) Negative (Negative); Leukocyte Small (Negative); Nitrite Negative (Negative); Protein, Urine (Dipstick) 100 mg/dL (Neg-Trace); Specific Gravity, Urine 1.019 (1.002-1.036); Urobilinogen 0.2 mg/dL (0.2-1.0); pH, Urine 5.5 (5.0-9.0)
[2018-08-01 21:44] LABS: Bacteria/HPF 4+ HPF (None Seen); Hyaline Casts/LPF 7-10 HYALINE CAST LPF (0-3 Hyaline); Pathc Cast-AUWi Flag 1.08 (0-2.49); RBC/HPF 0-3 HPF (0-3)
[2018-08-01] MEDS ORDERED: cefTRIAXone\\ROCEPHIN 2 GM VIAL ONE (22:20)
[2018-08-01] MEDS ORDERED: Acetaminophen 500 MG TAB ONE (23:56)
== END 2018-08-01 23:54 | disposition home or self-care (01) ==
LOC: ERS 18:57
DX: N39.0 Urinary tract infection, site not specified (principal); R53.1 Weakness; E05.90 Thyrotoxicosis, unspecified without thyrotoxic crisis or storm; E11.9 Type 2 diabetes mellitus without complications; E78.5 Hyperlipidemia, unspecified; I10 Essential (primary) hypertension; J45.909 Unspecified asthma, uncomplicated; F41.9 Anxiety disorder, unspecified; F32.9 Major depressive disorder, single episode, unspecified; Z79.84 Long term (current) use of oral hypoglycemic drugs; Z79.899 Other long term (current) drug therapy; Z79.82 Long term (current) use of aspirin
CPT/HCPCS: 36415; 51701; 71045; 80053; 81001; 81015; 82550; 83605; 84484; 85025; 85610; 85730; 87040; 87077; 87086; 87186; 87804; 93005; 96374; A4353; J0696

== ENCOUNTER 2018-11-29 11:17 | Emergency (ER) | payer MEDICARE ==
[2018-11-29 13:16] LABS: #Eosinphils 0.5 thou/uL (0.0-0.7); #Lymphocytes 4.9 thou/uL (1.20-3.40); #Monocytes 1.2 thou/uL (0.11-0.59); #Neutrophils 5.6 thou/uL (1.40-6.50); %Basophils 0.2 % (0.0-1.0); %Eosinophils 4.2 % (0.0-10.0); %Lymphocytes 39.8 % (21.0-51.0); %Monocytes 9.6 % (0.0-10.0); %Neutrophils 46.3 % (42.0-75.0); Hemoglobin 12.3 g/dL (12.0-16.0); Mean Corpuscular HGB CONC 32.6 g/dL (32.0-36.0); Mean Corpuscular Hemoglobin 28.8 pg (27.0-31.0); Mean Corpuscular Volume 88.6 fL (78.0-98.0); Mean Platelet Volume 6.9 fL (7.4-10.4); Platelet Count 387 thou/uL (130-400); RBC Distribution Width 12.7 % (11.5-14.5); Red Blood Cell (RBC) Count 4.26 mill/uL (4.20-5.40); White Blood Cell (WBC) Count 12.2 thou/uL (4.8-10.8)
[2018-11-29 13:33] LABS: ALT (SGPT) 18 U/L (8-55); AST (SGOT) 22 U/L (5-34); Albumin 4.3 g/dL (3.4-4.8); Alkaline Phosphatase 59 U/L (40-150); Anion Gap 11 mmol/L (10-20); BUN (Urea Nitrogen) 25 mg/dL (9.8-20.1); Bilirubin, Total 0.4 mg/dL (0.2-1.2); Calc. Creatinine Clearance 0 mL/min (70-130); Calcium 10.3 mg/dL (7.8-10.44); Carbon Dioxide 26 mmol/L (23-31); Chloride 93 mmol/L (98-107); Estimated GFR-MDRD 63; Globulin 3.4 g/dL (2.4-3.5); Glucose 110 mg/dL (83-110); Potassium 4.2 mmol/L (3.5-5.1); Protein, Total 7.7 g/dL (6.0-8.3); Sodium 126 mmol/L (136-145)
--- NOTE | 2018-11-29 13:37 | RAD ---
XR Chest 1 View Portable HISTORY: Cough, chest pain COMPARISON: 08/01/2018 FINDINGS: Changes of median sternotomy are again seen. Mild chronic changes again noted. Old right-si ded rib fractures are again seen. The heart size is normal. The lungs are well expanded without focal areas of consolidation, pneumothorax or pleural effusions. IMPRESSION: No radiographic evidence of acute cardiopulmonary process.
[2018-11-29 14:16] LABS: Bacteria/HPF 4+ HPF (None Seen); Bilirubin Negative (Negative); Blood, Urine Negative (Negative); Clarity Clear (Clear); Glucose, Urine (Dipstick) Normal (Negative); Leukocyte 250 Leu/uL (Negative); Nitrite Negative (Negative); Protein, Urine (Dipstick) 50 mg/dL (Neg-Trace); RBC/HPF 0-3 HPF (0-3); Squamous Epithelial 0-3 HPF (0-3); Urobilinogen Normal mg/dL (Less than 2); WBC/HPF 21-50 HPF (0-3)
== END 2018-11-29 15:19 | disposition home or self-care (01) ==
LOC: ERS 11:17
DX: E87.1 Hypo-osmolality and hyponatremia (principal); N39.0 Urinary tract infection, site not specified; E78.5 Hyperlipidemia, unspecified; I10 Essential (primary) hypertension; I48.91 Unspecified atrial fibrillation; F41.9 Anxiety disorder, unspecified; F32.9 Major depressive disorder, single episode, unspecified; E11.9 Type 2 diabetes mellitus without complications; J45.909 Unspecified asthma, uncomplicated; Z79.84 Long term (current) use of oral hypoglycemic drugs; Z79.82 Long term (current) use of aspirin; Z79.899 Other long term (current) drug therapy
CPT/HCPCS: 71045; 80053; 81003; 81015; 83880; 83930; 83935; 84484; 85025; 93005; 96360

== ENCOUNTER 2019-02-15 09:39 | Outpatient (CLI) | payer MEDICARE ==
--- NOTE | 2019-02-15 12:07 | ULT ---
BILATERAL RENAL ULTRASOUND: Date: 02/15/19 COMPARISON: None. HISTORY: Atrophic vaginitis. Urinary tract infections. TECHNIQUE: Multiplanar Youssef scale and color Doppler images were obtained in a renal ultrasound. FINDINGS: The right kidney is small and demonstrates cortical thinning. There is no evidence of hydronephrosis or calculi on either kidney. The kidneys measures 8.4 and 11.6 cm in length on the right and left, re spectively. Limited visualization of the urinary bladder is unremarkable. IMPRESSION: Small, atrophic right kidney. POS: [facility]
== END 2019-02-15 09:40 | disposition home or self-care (01) ==
LOC: BICULT 09:39
PROVIDERS: ATTEND Urology
DX: N95.2 Postmenopausal atrophic vaginitis (principal); N26.1 Atrophy of kidney (terminal)
CPT/HCPCS: 76770

== ENCOUNTER 2023-04-06 04:48 | Inpatient (IN) | payer MEDICARE ==
[2023-04-06 05:05] LABS: #Monocytes 0.9 thou/uL (0.11-0.59); #Neutrophils 4.9 thou/uL (1.40-6.50); %Basophils 0.3 % (0.0-1.0); %Eosinophils 0.1 % (0.0-10.0); %Lymphocytes 34.7 % (21.0-51.0); %Neutrophils 54.6 % (42.0-75.0); Hematocrit 24.3 % (36.0-47.0); Hemoglobin 7.5 g/dL (12.0-16.0); Mean Corpuscular HGB CONC 30.9 g/dL (32.0-36.0); Mean Corpuscular Hemoglobin 22.8 pg (27.0-31.0); Mean Corpuscular Volume 73.9 fl (78.0-98.0); Mean Platelet Volume 9.6 fL (7.4-10.4); Platelet Count 392 10x3/uL (130-400); RBC Distribution Width 18.4 % (11.5-14.5); Red Blood Cell (RBC) Count 3.29 mill/uL (4.20-5.40); White Blood Cell (WBC) Count 8.9 10x3/uL (4.8-10.8)
[2023-04-06 05:24] LABS: PTT 39.4 sec (22.9-36.1)
[2023-04-06 05:25] LABS: D-Dimer Test 1.15 *mcg/mL (0.27-0.43); INR-International Normal Ratio 1.2; Prothrombin Time 15.9 sec (12.0-14.7)
[2023-04-06 05:42] LABS: ALT (SGPT) 15 U/L (8-55); AST (SGOT) 27 U/L (5-34); Albumin 4.2 g/dL (3.4-4.8); Alkaline Phosphatase 43 U/L (40-110); Anion Gap 18 mmol/L (10-20); BUN (Urea Nitrogen) 32 mg/dL (9.8-20.1); Bilirubin, Total 0.3 mg/dL (0.2-1.2); Calc. Creatinine Clearance 0 mL/min (70-130); Calcium 9.3 mg/dL (7.8-10.44); Carbon Dioxide 21 mmol/L (23-31); Chloride 101 mmol/L (98-107); Estimated GFR 33; Globulin 3.4 g/dL (2.4-3.5); Glucose 203 mg/dL (83-110); Magnesium 1.8 mg/dL (1.6-2.6); Potassium 3.6 mmol/L (3.5-5.1); Protein, Total 7.6 g/dL (5.8-8.1); Sodium 136 mmol/L (136-145)
[2023-04-06 05:51] LABS: Troponin I 0.757 ng/mL (< 0.028)
[2023-04-06] MEDS ORDERED: Famotidine/PF 20 mg/2ml Vial ONE (05:57)
[2023-04-06] MEDS ORDERED: diphenhydrAMINE 50 MG/ML VIAL ONE (05:57)
[2023-04-06] MEDS ORDERED: methylPREDNISolone Sod Succ/PF 125 MG/2 ML VIAL ONE (05:57)
[2023-04-06 06:38] LABS: Anisocytosis SLIGHT = 6-15 cells HPF (0-5); CellaVision Operator ID LAB.JMM; Macrocytosis SLIGHT = 6-15 cells HPF (0-5); Ovalocytes SLIGHT = 2-5 cells HPF (0-1); Platelet Adequacy Comment Platelets Normal; Polychromasia SLIGHT = 2-3 cells HPF (0-2); Target Cells SLIGHT = 2-5 cells HPF (0-1)
[2023-04-06] MEDS ORDERED: Furosemide 40 MG/4 ML VIAL ONE (07:07)
[2023-04-06] MEDS ORDERED: Acetaminophen 325 MG TAB PO PRN (07:50)
[2023-04-06 08:45] LABS: Troponin I 1.759 ng/mL (< 0.028)
[2023-04-06] MEDS ORDERED: Glucagon 1 MG/ML KIT IM PRN (08:47)
[2023-04-06] MEDS ORDERED: Dextrose 50% Abboject 50 ML SYRINGE SLOW IVP PRN (08:47)
[2023-04-06] MEDS ORDERED: Dextrose 5% in Water 1,000 ML IV PRN (08:47)
[2023-04-06] MEDS ORDERED: Aspirin 81 mg Enteric Coated Tablet PO SCH (09:00)
[2023-04-06] MEDS ORDERED: Non-Formulary Item 1 EACH (Metformin Hcl [Metformin Er Gastric] 500 MG Tabergr24h) PO SCH (09:00)
[2023-04-06 09:56] VITALS: BMI 25.1
[2023-04-06] MEDS: Metoprolol Tartrate 25 MG TAB PO SCH ×2 (10:24→20:47)
[2023-04-06] MEDS: Potassium Chloride 20 MEQ TAB PO SCH (10:25)
[2023-04-06] MEDS: hydrALAZINE 25 MG TAB PO SCH ×3 (10:26→20:47)
[2023-04-06] MEDS: metFORMIN XR 500 MG ER.TAB PO SCH ×2 (10:26→20:46)
[2023-04-06] MEDS: HumaLOG 300 UNITS/3 ML VIAL SC PRN ×2 (10:27→17:46)
[2023-04-06 11:27] LABS: Troponin I 2.137 ng/mL (< 0.028)
[2023-04-06] MEDS: Furosemide 40 MG/4 ML VIAL SLOW IVP SCH (14:38)
[2023-04-06 18:46] LABS: Troponin I 3.166 ng/mL (< 0.028)
[2023-04-06] MEDS: Sertraline 100 MG TAB PO SCH (20:45)
[2023-04-06] MEDS: Atorvastatin Calcium 10 MG TAB PO SCH (20:47)
[2023-04-06] MEDS ORDERED: Pravastatin Sodium 40 MG TAB PO SCH (21:00)
[2023-04-07 05:08] LABS: #Monocytes 0.7 thou/uL (0.11-0.59); %Lymphocytes 38.5 % (21.0-51.0); %Monocytes 11.8 % (0.0-10.0); %Neutrophils 49.4 % (42.0-75.0); Hematocrit 22.1 % (36.0-47.0); Hemoglobin 6.9 g/dL (12.0-16.0); Mean Corpuscular HGB CONC 31.2 g/dL (32.0-36.0); Mean Corpuscular Hemoglobin 22.6 pg (27.0-31.0); Mean Corpuscular Volume 72.5 fl (78.0-98.0); Mean Platelet Volume 9.9 fL (7.4-10.4); Platelet Count 318 10x3/uL (130-400); RBC Distribution Width 17.7 % (11.5-14.5); Red Blood Cell (RBC) Count 3.05 mill/uL (4.20-5.40); White Blood Cell (WBC) Count 6.1 10x3/uL (4.8-10.8)
[2023-04-07] MEDS: Furosemide 40 MG/4 ML VIAL SLOW IVP SCH ×2 (05:26→14:31)
[2023-04-07 05:31] LABS: Anion Gap 14 mmol/L (10-20); BUN (Urea Nitrogen) 37 mg/dL (9.8-20.1); Calc. Creatinine Clearance 30 mL/min (70-130); Calcium 8.4 mg/dL (7.8-10.44); Carbon Dioxide 25 mmol/L (23-31); Chloride 100 mmol/L (98-107); Estimated GFR 42; Glucose 94 mg/dL (83-110); Magnesium 1.8 mg/dL (1.6-2.6); Potassium 3.6 mmol/L (3.5-5.1); Sodium 135 mmol/L (136-145)
[2023-04-07] MEDS: Metoprolol Tartrate 25 MG TAB PO SCH ×2 (09:12→20:56)
[2023-04-07] MEDS: Dronedarone HCl 400 MG TAB PO SCH ×2 (09:12→17:33)
[2023-04-07] MEDS: metFORMIN XR 500 MG ER.TAB PO SCH ×2 (09:13→20:57)
[2023-04-07] MEDS: Potassium Chloride 20 MEQ TAB PO SCH (09:13)
[2023-04-07] MEDS: hydrALAZINE 25 MG TAB PO SCH ×3 (09:13→20:57)
[2023-04-07] MEDS: HumaLOG 300 UNITS/3 ML VIAL SC PRN (17:33)
[2023-04-07] MEDS: Sertraline 100 MG TAB PO SCH (20:56)
[2023-04-07] MEDS: Atorvastatin Calcium 10 MG TAB PO SCH (20:57)
[2023-04-08 05:40] LABS: Anion Gap 16 mmol/L (10-20); BUN (Urea Nitrogen) 37 mg/dL (9.8-20.1); Calc. Creatinine Clearance 29 mL/min (70-130); Calcium 8.5 mg/dL (7.8-10.44); Carbon Dioxide 26 mmol/L (23-31); Chloride 96 mmol/L (98-107); Estimated GFR 40; Glucose 115 mg/dL (83-110); Potassium 3.4 mmol/L (3.5-5.1); Sodium 135 mmol/L (136-145)
[2023-04-08] MEDS: Furosemide 40 MG/4 ML VIAL SLOW IVP SCH (05:44)
[2023-04-08 09:19] LABS: #Monocytes 0.6 thou/uL (0.11-0.59); #Neutrophils 6.8 thou/uL (1.40-6.50); %Basophils 0.1 % (0.0-1.0); %Lymphocytes 19.1 % (21.0-51.0); %Monocytes 6.8 % (0.0-10.0); %Neutrophils 73.7 % (42.0-75.0); Hematocrit 29.5 % (36.0-47.0); Hemoglobin 9.3 g/dL (12.0-16.0); Mean Corpuscular HGB CONC 31.5 g/dL (32.0-36.0); Mean Corpuscular Hemoglobin 23.5 pg (27.0-31.0); Mean Corpuscular Volume 74.5 fl (78.0-98.0); Mean Platelet Volume 10.7 fL (7.4-10.4); Platelet Count 369 10x3/uL (130-400); RBC Distribution Width 18.2 % (11.5-14.5); Red Blood Cell (RBC) Count 3.96 mill/uL (4.20-5.40); White Blood Cell (WBC) Count 9.3 10x3/uL (4.8-10.8)
[2023-04-08] MEDS ORDERED: Ondansetron PF 4 MG/2 ML Vial IVP PRN (10:17)
[2023-04-08] MEDS: Dronedarone HCl 400 MG TAB PO SCH ×2 (13:54→16:34)
[2023-04-08] MEDS: HumaLOG 300 UNITS/3 ML VIAL SC PRN (13:54)
[2023-04-08] MEDS: Furosemide 20 MG/2 ML VIAL SLOW IVP SCH (13:54)
[2023-04-08] MEDS: hydrALAZINE 25 MG TAB PO SCH ×3 (13:54→20:47)
[2023-04-08] MEDS: metFORMIN XR 500 MG ER.TAB PO SCH ×2 (13:55→20:55)
[2023-04-08] MEDS: Metoprolol Tartrate 25 MG TAB PO SCH ×2 (13:55→20:47)
[2023-04-08] MEDS: Potassium Chloride 20 MEQ TAB PO SCH ×3 (13:55→16:34)
[2023-04-08] MEDS: Atorvastatin Calcium 10 MG TAB PO SCH (20:47)
[2023-04-08] MEDS: Sertraline 100 MG TAB PO SCH (20:48)
[2023-04-09] MEDS: Furosemide 20 MG/2 ML VIAL SLOW IVP SCH ×2 (05:12→13:07)
[2023-04-09] MEDS: Metoprolol Tartrate 25 MG TAB PO SCH (09:27)
[2023-04-09] MEDS: metFORMIN XR 500 MG ER.TAB PO SCH (09:27)
[2023-04-09] MEDS: Dronedarone HCl 400 MG TAB PO SCH (09:27)
[2023-04-09] MEDS: hydrALAZINE 25 MG TAB PO SCH ×2 (09:27→14:55)
[2023-04-09 12:22] VITALS: TEMP 98.1
[2023-04-09 12:48] VITALS: BP 130/58
== END 2023-04-09 15:35 | disposition home health service (06) | DRG 280 ==
LOC: ERS 04:48 → 2NO 09:12
PROVIDERS: ADMIT Internal Medicine; ATTEND Internal Medicine
PROC: 30233N1 Transfusion of Nonautologous Red Blood Cells into Peripheral Vein, Percutaneous Approach (ICD-10-PCS; principal; 2023-04-07)
DX: I13.0 Hypertensive heart and chronic kidney disease with heart failure and stage 1 through stage 4 chronic kidney disease, or unspecified chronic kidney disease (principal); I21.A1 Myocardial infarction type 2; I50.33 Acute on chronic diastolic (congestive) heart failure; J96.01 Acute respiratory failure with hypoxia; N17.9 Acute kidney failure, unspecified; I25.810 Atherosclerosis of coronary artery bypass graft(s) without angina pectoris; I47.19 Other supraventricular tachycardia; Z66 Do not resuscitate; E78.5 Hyperlipidemia, unspecified; N18.30 Chronic kidney disease, stage 3 unspecified; D63.1 Anemia in chronic kidney disease; E11.22 Type 2 diabetes mellitus with diabetic chronic kidney disease; F41.9 Anxiety disorder, unspecified; I44.7 Left bundle-branch block, unspecified; I48.0 Paroxysmal atrial fibrillation; E78.00 Pure hypercholesterolemia, unspecified; Z96.643 Presence of artificial hip joint, bilateral; Z95.1 Presence of aortocoronary bypass graft; Z88.8 Allergy status to other drugs, medicaments and biological substances; Z79.899 Other long term (current) drug therapy; Z79.82 Long term (current) use of aspirin; Z98.49 Cataract extraction status, unspecified eye; Z98.890 Other specified postprocedural states
CPT/HCPCS: 36415; 36416; 36430; 71045; 80048; 80053; 83735; 83880; 84443; 84484; 85025; 85379; 85610; 85730; 86850; 86900; 86901; 93005; 96374; 96375; J1200; J1815; J1940; J2405; J2930; P9016; S0028

== ENCOUNTER 2023-04-11 16:32 | Inpatient (IN) | payer MEDICARE ==
[2023-04-11 19:03] LABS: #Monocytes 0.7 thou/uL (0.11-0.59); #Neutrophils 5.3 thou/uL (1.40-6.50); %Basophils 0.1 % (0.0-1.0); %Eosinophils 0.3 % (0.0-10.0); %Neutrophils 70.1 % (42.0-75.0); Hematocrit 31.3 % (36.0-47.0); Hemoglobin 10.1 g/dL (12.0-16.0); Mean Corpuscular HGB CONC 32.3 g/dL (32.0-36.0); Mean Corpuscular Hemoglobin 23.7 pg (27.0-31.0); Mean Corpuscular Volume 73.3 fl (78.0-98.0); Mean Platelet Volume 10.6 fL (7.4-10.4); Platelet Count 302 10x3/uL (130-400); RBC Distribution Width 19.1 % (11.5-14.5); Red Blood Cell (RBC) Count 4.27 mill/uL (4.20-5.40); White Blood Cell (WBC) Count 7.6 10x3/uL (4.8-10.8)
[2023-04-11 19:28] LABS: ALT (SGPT) 15 U/L (8-55); AST (SGOT) 26 U/L (5-34); Albumin 3.7 g/dL (3.4-4.8); Alkaline Phosphatase 40 U/L (40-110); Anion Gap 19 mmol/L (10-20); BUN (Urea Nitrogen) 45 mg/dL (9.8-20.1); Bilirubin, Total 0.6 mg/dL (0.2-1.2); Calc. Creatinine Clearance 0 mL/min (70-130); Carbon Dioxide 21 mmol/L (23-31); Chloride 96 mmol/L (98-107); Estimated GFR 34; Globulin 3.6 g/dL (2.4-3.5); Glucose 139 mg/dL (83-110); Potassium 3.8 mmol/L (3.5-5.1); Protein, Total 7.3 g/dL (5.8-8.1); Sodium 132 mmol/L (136-145)
[2023-04-11 19:35] LABS: Anisocytosis SLIGHT = 6-15 cells HPF (0-5); Burr Cells SLIGHT = 2-5 cells HPF (0-1); CellaVision Operator ID LAB.MJL; Elliptocytes SLIGHT = 2-5 cells HPF (0-1); Hypochromia SLIGHT = 6-15 cells HPF (0-5); Microcytosis SLIGHT = 6-15 cells HPF (0-5); Ovalocytes SLIGHT = 2-5 cells HPF (0-1); Platelet Adequacy Comment Platelets Normal; Poikilocytosis SLIGHT = 6-15 cells HPF (0-5); Polychromasia SLIGHT = 2-3 cells HPF (0-2)
[2023-04-11 19:39] LABS: Troponin I 0.363 ng/mL (< 0.028)
[2023-04-11] MEDS ORDERED: HumaLOG 300 UNITS/3 ML VIAL SC PRN ×2 (20:42)
[2023-04-11] MEDS ORDERED: Glucagon 1 MG/ML KIT IM PRN (20:42)
[2023-04-11] MEDS ORDERED: Dextrose 50% Abboject 50 ML SYRINGE SLOW IVP PRN (20:42)
[2023-04-11] MEDS ORDERED: Ondansetron PF 4 MG/2 ML Vial IVP PRN ×2 (20:42→21:00)
[2023-04-11] MEDS ORDERED: Acetaminophen 325 MG TAB PO PRN (20:42)
[2023-04-11] MEDS ORDERED: Dextrose 5% in Water 1,000 ML IV PRN (20:42)
[2023-04-11] MEDS ORDERED: Ondansetron ODT 4 MG TAB SL PRN (21:00)
[2023-04-11] MEDS ORDERED: Sodium Chloride 0.9% 1,000 ML IV SCH (21:00)
[2023-04-11] MEDS ORDERED: Nitroglycerin 2% Ointment 1 INCH/1 GM Packet ONE (21:15)
[2023-04-11] MEDS ORDERED: Aspirin Chewable 81 MG TAB ONE (21:15)
[2023-04-11] MEDS ORDERED: Furosemide 40 MG/4 ML VIAL ONE (21:15)
[2023-04-11] MEDS: Sertraline 100 MG TAB PO SCH (22:37)
[2023-04-11] MEDS: Atorvastatin Calcium 10 MG TAB PO SCH (22:38)
[2023-04-11] MEDS: hydrALAZINE 25 MG TAB PO SCH (22:38)
[2023-04-11] MEDS: Apixaban 2.5 MG TAB PO SCH (22:38)
[2023-04-11 23:15] VITALS: BMI 23.8
[2023-04-11 23:48] LABS: Critical Call Chem Troponin I RESULT DECREASING; Troponin I 0.285 ng/mL (< 0.028)
[2023-04-12 04:51] LABS: #Monocytes 0.6 thou/uL (0.11-0.59); #Neutrophils 7.8 thou/uL (1.40-6.50); %Basophils 0.1 % (0.0-1.0); %Eosinophils 0.1 % (0.0-10.0); %Lymphocytes 18.3 % (21.0-51.0); %Neutrophils 75.1 % (42.0-75.0); Hematocrit 29.6 % (36.0-47.0); Hemoglobin 9.4 g/dL (12.0-16.0); Mean Corpuscular HGB CONC 31.8 g/dL (32.0-36.0); Mean Corpuscular Hemoglobin 23.3 pg (27.0-31.0); Mean Corpuscular Volume 73.3 fl (78.0-98.0); Mean Platelet Volume 10.9 fL (7.4-10.4); Platelet Count 290 10x3/uL (130-400); RBC Distribution Width 19.3 % (11.5-14.5); Red Blood Cell (RBC) Count 4.04 mill/uL (4.20-5.40); White Blood Cell (WBC) Count 10.4 10x3/uL (4.8-10.8)
[2023-04-12 05:15] LABS: Anion Gap 18 mmol/L (10-20); BUN (Urea Nitrogen) 36 mg/dL (9.8-20.1); Calc. Creatinine Clearance 27 mL/min (70-130); Calcium 8.8 mg/dL (7.8-10.44); Carbon Dioxide 24 mmol/L (23-31); Chloride 97 mmol/L (98-107); Estimated GFR 37; Glucose 136 mg/dL (83-110); Potassium 3.5 mmol/L (3.5-5.1); Sodium 135 mmol/L (136-145)
[2023-04-12 05:33] LABS: Troponin I 0.317 ng/mL (< 0.028)
[2023-04-12] MEDS: Furosemide 40 MG/4 ML VIAL SLOW IVP SCH ×2 (06:17→14:55)
[2023-04-12] MEDS: Cholecalciferol 1,000 UNITS (25 MCG) TAB PO SCH (09:21)
[2023-04-12] MEDS: Metoprolol Tartrate 25 MG TAB PO SCH ×2 (09:22→20:32)
[2023-04-12] MEDS: Amlodipine 10 MG TAB PO SCH (09:22)
[2023-04-12] MEDS: hydrALAZINE 25 MG TAB PO SCH ×3 (09:23→20:31)
[2023-04-12] MEDS: Potassium Chloride 20 MEQ TAB PO SCH (09:23)
[2023-04-12] MEDS: Apixaban 2.5 MG TAB PO SCH ×2 (09:23→20:31)
[2023-04-12] MEDS: Dronedarone HCl 400 MG TAB PO SCH ×2 (09:23→17:24)
[2023-04-12] MEDS ORDERED: Aspirin 81 mg Enteric Coated Tablet PO SCH (12:45)
[2023-04-12] MEDS ORDERED: Electrolyte Replacement Protocol 1 EACH FS SCH (12:45)
[2023-04-12] MEDS ORDERED: Potassium Chloride 20 MEQ TAB PO SCH (13:00)
[2023-04-12 13:47] LABS: Magnesium 1.8 mg/dL (1.6-2.6)
[2023-04-12] MEDS ORDERED: Magnesium 2 GM/50 ML(in water) 2 GM in Premix 1 BAG IVPB SCH (14:00)
[2023-04-12] MEDS: Atorvastatin Calcium 10 MG TAB PO SCH (20:31)
[2023-04-12] MEDS: Sertraline 100 MG TAB PO SCH (20:32)
[2023-04-13 04:47] LABS: Magnesium 2.2 mg/dL (1.6-2.6)
[2023-04-13] MEDS: Furosemide 40 MG/4 ML VIAL SLOW IVP SCH ×2 (05:34→14:10)
[2023-04-13 08:33] LABS: Anion Gap 15 mmol/L (10-20); BUN (Urea Nitrogen) 31 mg/dL (9.8-20.1); Calc. Creatinine Clearance 26 mL/min (70-130); Calcium 8.7 mg/dL (7.8-10.44); Carbon Dioxide 25 mmol/L (23-31); Chloride 96 mmol/L (98-107); Estimated GFR 37; Glucose 95 mg/dL (83-110); Potassium 3.9 mmol/L (3.5-5.1); Sodium 132 mmol/L (136-145)
[2023-04-13] MEDS: Cholecalciferol 1,000 UNITS (25 MCG) TAB PO SCH (09:46)
[2023-04-13] MEDS: Aspirin 81 mg Enteric Coated Tablet PO SCH (09:46)
[2023-04-13] MEDS: Metoprolol Tartrate 25 MG TAB PO SCH ×2 (09:46→20:39)
[2023-04-13] MEDS: Amlodipine 10 MG TAB PO SCH (09:46)
[2023-04-13] MEDS: Apixaban 2.5 MG TAB PO SCH ×2 (09:47→20:39)
[2023-04-13] MEDS: Dronedarone HCl 400 MG TAB PO SCH ×2 (09:47→17:26)
[2023-04-13] MEDS: hydrALAZINE 25 MG TAB PO SCH ×3 (09:47→20:38)
[2023-04-13] MEDS: Potassium Chloride 20 MEQ TAB PO SCH (09:49)
[2023-04-13] MEDS ORDERED: Polyethylene Glycol 3350 17 GM Packet PO SCH (12:30)
[2023-04-13] MEDS: Atorvastatin Calcium 10 MG TAB PO SCH (20:38)
[2023-04-13] MEDS: Sertraline 100 MG TAB PO SCH (20:38)
[2023-04-13] MEDS ORDERED: Estradiol 0.01% Vaginal Cream 42.5 gm Tube VAG SCH (21:00)
[2023-04-14 04:16] LABS: Anion Gap 13 mmol/L (10-20); BUN (Urea Nitrogen) 32 mg/dL (9.8-20.1); Calc. Creatinine Clearance 23 mL/min (70-130); Calcium 8.8 mg/dL (7.8-10.44); Carbon Dioxide 25 mmol/L (23-31); Chloride 97 mmol/L (98-107); Estimated GFR 31; Glucose 107 mg/dL (83-110); Potassium 4.2 mmol/L (3.5-5.1); Sodium 131 mmol/L (136-145)
[2023-04-14] MEDS: Furosemide 40 MG/4 ML VIAL SLOW IVP SCH (06:00)
[2023-04-14] MEDS ORDERED: Magnesium 2 GM/50 ML(in water) 2 GM in Premix 1 BAG IVPB SCH (08:00)
[2023-04-14 08:28] VITALS: TEMP 97.5
[2023-04-14] MEDS: Cholecalciferol 1,000 UNITS (25 MCG) TAB PO SCH (08:29)
[2023-04-14] MEDS: Aspirin 81 mg Enteric Coated Tablet PO SCH (08:29)
[2023-04-14] MEDS: Metoprolol Tartrate 25 MG TAB PO SCH (08:30)
[2023-04-14] MEDS: Apixaban 2.5 MG TAB PO SCH (08:31)
[2023-04-14] MEDS: hydrALAZINE 25 MG TAB PO SCH ×2 (08:31→15:23)
[2023-04-14] MEDS: Potassium Chloride 20 MEQ TAB PO SCH (08:31)
[2023-04-14] MEDS: Amlodipine 10 MG TAB PO SCH (08:31)
[2023-04-14] MEDS: Dronedarone HCl 400 MG TAB PO SCH (08:31)
[2023-04-14] MEDS ORDERED: Polyethylene Glycol 3350 17 GM Packet PO SCH (09:00)
[2023-04-14 15:16] VITALS: BP 131/62
[2023-04-15] MEDS ORDERED: Furosemide 40 MG TAB PO SCH (07:30)
== END 2023-04-14 18:17 | DRG 280 ==
LOC: ERS 16:32 → 2NO 20:45 → INTOOBSV 20:45 → OBSVTOIN 04-13 18:02
PROVIDERS: ADMIT Student in an Organized Health Care Education/Training Program; ATTEND Internal Medicine Critical Care Medicine
DX: I13.0 Hypertensive heart and chronic kidney disease with heart failure and stage 1 through stage 4 chronic kidney disease, or unspecified chronic kidney disease (principal); I50.33 Acute on chronic diastolic (congestive) heart failure; I21.A1 Myocardial infarction type 2; I48.20 Chronic atrial fibrillation, unspecified; Z66 Do not resuscitate; Z51.5 Encounter for palliative care; E11.22 Type 2 diabetes mellitus with diabetic chronic kidney disease; N18.30 Chronic kidney disease, stage 3 unspecified; D63.1 Anemia in chronic kidney disease; R77.8 Other specified abnormalities of plasma proteins; E78.5 Hyperlipidemia, unspecified; Z96.643 Presence of artificial hip joint, bilateral; Z88.8 Allergy status to other drugs, medicaments and biological substances; Z79.899 Other long term (current) drug therapy; Z90.89 Acquired absence of other organs; Z98.49 Cataract extraction status, unspecified eye; Z82.49 Family history of ischemic heart disease and other diseases of the circulatory system
CPT/HCPCS: 36415; 36416; 71045; 80048; 80053; 83735; 83880; 84484; 85025; 85379; 93005; 96374; J1940; J3475